=== PATIENT | male | born 1940 | race Caucasian/White ===

== ENCOUNTER 2019-07-04 09:13 | Emergency (ER) | payer MEDICARE, OTHER, SELFPAY ==
[2019-07-04 09:14] VITALS: BP 198/87; PULSE 105; RESP 18; TEMP 36.6; O2SAT 95; BMI 34.7
--- NOTE | 2019-07-04 09:22 | ED_ITS ---
Entered by Kadie Jorgensen, acting as scribe for HPI - Chest Pain General: Chief Complaint: Chest Pain Stated Complaint: Chest pain Time Seen by Provider: 07/04/19 09:22 History of Present Illness: HPI narrative: 79 yo male presents with chest pain. Pt states that his pain radiates to his shoulder blades. Pt states that he started getting his chest pain this morning. Pt states that he wasn't doing anything when his pain started. Pt states that the chest pain is still present. Associated symptoms: Deny abdominal pain, dyspnea, fever(s), nausea, palpitations, syncope or vomiting Review of Systems Const: Denies: fever, chills, body aches, fatigue, malaise or night sweats Eyes: Denies: change in vision or blurry vision ENMT: Denies: throat pain, oral sores/lesions, dental pain, nasal discharge or nasal congestion Card: Reports: chest pain; Denies: palpitations, irregular heart rhythm, edema, syncope, shortness of breath on exertion, shortness of breath when lying down or leg pain with exertion Resp: Denies: shortness of breath, productive cough, non-productive cough or wheezing GI: Denies: abdominal pain, nausea, vomiting, vomiting blood, coffee grounds in vomit, difficulty swallowing, heartburn/indigestion, diarrhea, constipation, cramping, blood in stool or black tarry stool : Denies: flank pain, difficulty urinating, painful urination, urinary frequency, urinary urgency, urinary incontinence or blood in urine Musc: Denies: neck pain, back pain, extremity pain, extremity swelling, joint pain or joint swelling Skin/Breast: Denies: rash, itching or redness Neuro: Denies: headache, numbness in extremities, weakness in extremities, changes in sensation, lack of coordination, difficulty walking, frequent falls, dizziness, vertigo or confusion Psych: Denies: anxiety, depression, loss of interest, visual hallucinations, auditory hallucinations, suicidal ideation or homicidal ideation Endo: Denies: excessive urination, excessive thirst, tired all the time or cold intolerance Varun/Lymph: Denies: easy bruising, easy bleeding, petechiae, enlarged lymph nodes or tender lymph nodes PFSH ED PFSH: Medical History (Updated 07/04/19 @ 12:43 by Bob Lowe DO) Acid reflux Anemia Colon cancer Hypercholesterolemia Hypertension Skin cancer Surgical History (Updated 07/04/19 @ 09:29 by Kadie Jorgensen) Hx of CABG Social History Smoking and tobacco status: former smoker Physical Exam Const: COMMON NORMALS: average body habitus, oriented x3 and alert GENERAL APPEARANCE: cooperative, comfortable, well kempt and well developed NUTRITIONAL APPEARANCE: obese ORIENTATION/CONSCIOUSNESS: Yes awake, Yes oriented to person and Yes oriented to place HENMT: COMMON NORMALS: normocephalic, head/scalp atraumatic, EAC's normal, TM's normal bilaterally, external nose normal, moist oral mucous membranes and oropharynx normal HEAD & SCALP: normocephalic and atraumatic NOSE: external nose normal EXTERNAL AUDITORY CANAL: EAC's normal TYMPANIC MEMBRANE: TM's normal bilaterally MOUTH: oral and palatal mucosa normal, lip normal and tongue normal THROAT: posterior oropharynx normal and tonsils normal Eye: COMMON NORMALS: PERRL, EOMs intact bilaterally, conjunctivae normal and no scleral icterus CONJUNCTIVA: Yes conjunctivae normal PUPIL: Yes PERRL Neck/C-Spine: COMMON NORMALS: full ROM, no lymphadenopathy, supple, no meningeal signs and thyroid normal THYROID: thyroid normal and asymmetrical Lymph: LYMPHATIC: no lymphadenopathy noted Resp: COMMON NORMALS: normal respiratory effort, no retractions, no use of accessory muscles and clear to auscultation bilaterally AUSCULTATION: clear to auscultation bilaterally Cardio: COMMON NORMALS: regular rate and regular rhythm RATE: regular rate RHYTHM: regular rhythm HEART SOUNDS: no murmurs GI: COMMON NORMALS: normal to inspection, nondistended, normoactive bowel sounds, soft to palpation and no hepatosplenomegaly PALPATION: Yes soft and Yes no hepatosplenomegaly : COMMON NORMALS: Yes no CVA tenderness BLADDER/KIDNEY EXAM: Yes no CVA tenderness Back/Pelvis: COMMON NORMALS: no CVA tenderness LUMBAR SPINE/LOWER BACK: Yes normal to inspection Extremity: COMMON NORMALS: no clubbing, cyanosis or edema, no calf tenderness and no pedal edema Neuro: COMMON NORMALS: oriented x3 SENSORIUM/ORIENTATION: Yes alert, Yes oriented to person and Yes oriented to place MENINGEAL SIGNS: Yes no meningeal signs Psych: APPEARANCE: Yes well kempt Skin: COMMON NORMALS: no rashes or lesions noted and skin turgor normal GENERAL SKIN EXAM: no rashes or lesions noted and turgor normal Course ED course: Troponin x2 is negative. Patient had a normal sestamibi stress test in February 2019. Is not having any further chest pain at this time he prefer to go home it does look like he has a small pneumonia on his chest x-ray go and start him on antibiotics if has any worsening or change symptoms return to emergency room immediately Vital Signs: Vital signs: Vital Signs Temperature 97.9 F 07/04/19 09:14 Pulse Rate 56 L 07/04/19 12:59 Respiratory Rate 18 07/04/19 12:59 Blood Pressure 162/68 07/04/19 12:59 Pulse Oximetry 98 07/04/19 12:59 MDM - Chest Pain Lab Data: Labs: Lab Results 07/04/19 07/04/19 07/04/19 Range/Units 09:44 09:44 09:44 WBC 6.1 (4.0-10.0) 10^3/ uL RBC 4.32 (4.1-5.3) 10^6/u L Hgb 13.1 (11.7-16.6) g/dL Hct 38.5 L (42.0-52.0) % MCV 89.1 (80-94) fL MCH 30.3 (28.0-34.0) pg MCHC 34.0 (30.0-36.0) g/dL RDW 14.1 (12.1-15.1) % Plt Count 188 (130-400) 10^3/c mm MPV 9.6 (7.4-10.4) fL Neut % (Auto) 52.4 % Lymph % (Auto) 33.1 % Mineral % (Auto) 11.1 % Eos % (Auto) 2.6 % Baso % (Auto) 0.3 % Neut # (Auto) 3.2 (1.8-7.7) 10^3/u L Lymph # (Auto) 2.0 (0.8-4.8) 10^3/u L Mineral # (Auto) 0.7 (0.2-0.9) 10^3/u L Eos # (Auto) 0.2 (0.0-0.8) 10^3/u L Baso # (Auto) 0.0 (0.0-0.1) 10^3/u L Nucleated RBC % (a uto) 0 % Nucleated RBCs # 0.0 /100WBC PT 12.90 (10.5-13.3) SECO NDS INR 0.94 (0.8-1.2) APTT 25.7 (23.9-36.7) SECO NDS Sodium 137 (136-145) mmol/L Potassium 4.1 (3.5-5.1) mmol/L Chloride 104 (98-107) mmol/L Carbon Dioxide 20 L (22-29) mmol/L Anion Gap 17.1 (5-19) BUN 20 (8-23) mg/dL Creatinine 1.2 (0.7-1.2) mg/dL Glucose 116 H (65-115) mg/dL Calcium 9.8 (8.5-10.5) mg/dL Total Bilirubin 0.5 (0.15-1.2) mg/dL AST 24 (0-40) U/L ALT 32 (0-41) U/L Alkaline Phosphata se 100 (40-130) IU/L Troponin T Baselin e (0-15) ng/mL Troponin T 120 Min bharath (0-15) ng/mL Delta Troponin T (0-10) ABS# Total Protein 7.2 (6.6-8.7) g/dL Albumin 3.9 (3.5-5.2) g/dL Globulin 3.3 (1.3-4.6) g/dL Lipase 39 (13-60) U/L 07/04/19 07/04/19 Range/Units 09:44 11:32 WBC (4.0-10.0) 10^3/ uL RBC (4.1-5.3) 10^6/u L Hgb (11.7-16.6) g/dL Hct (42.0-52.0) % MCV (80-94) fL MCH (28.0-34.0) pg MCHC (30.0-36.0) g/dL RDW (12.1-15.1) % Plt Count (130-400) 10^3/c mm MPV (7.4-10.4) fL Neut % (Auto) % Lymph % (Auto) % Mineral % (Auto) % Eos % (Auto) % Baso % (Auto) % Neut # (Auto) (1.8-7.7) 10^3/u L Lymph # (Auto) (0.8-4.8) 10^3/u L Mineral # (Auto) (0.2-0.9) 10^3/u L Eos # (Auto) (0.0-0.8) 10^3/u L Baso # (Auto) (0.0-0.1) 10^3/u L Nucleated RBC % (a uto) % Nucleated RBCs # /100WBC PT (10.5-13.3) SECO NDS INR (0.8-1.2) APTT (23.9-36.7) SECO NDS Sodium (136-145) mmol/L Potassium (3.5-5.1) mmol/L Chloride (98-107) mmol/L Carbon Dioxide (22-29) mmol/L Anion Gap (5-19) BUN (8-23) mg/dL Creatinine (0.7-1.2) mg/dL Glucose (65-115) mg/dL Calcium (8.5-10.5) mg/dL Total Bilirubin (0.15-1.2) mg/dL AST (0-40) U/L ALT (0-41) U/L Alkaline Phosphata se (40-130) IU/L Troponin T Baselin e 16 H (0-15) ng/mL Troponin T 120 Min bharath 15.50 H (0-15) ng/mL Delta Troponin T -0.20 L (0-10) ABS# Total Protein (6.6-8.7) g/dL Albumin (3.5-5.2) g/dL Globulin (1.3-4.6) g/dL Lipase (13-60) U/L Discharge Plan Discharge Patient Disposition: Home, Self-Care Clinical Impression: Pneumonia Condition: Stable Prescriptions: New Levaquin 750 mg tablet 750 mg PO DAILY 7 Days Qty: 14 RF: 0 No Action atorvastatin 40 mg Tablet 40 mg PO DAILY RF: 0 tamsulosin 0.4 mg Capsule 0.4 mg PO DAILY RF: 0 trazodone 100 mg Tablet 100 mg PO BID RF: 0 Protonix 40 mg Tablet,Delayed Release (Dr/Ec) 40 mg PO DAILY RF: 0 metoprolol tartrate 50 mg Tablet 50 mg PO BID RF: 0 losartan 100 mg Tablet 100 mg PO DAILY RF: 0 finasteride 5 mg Tablet 5 mg PO DAILY RF: 0 Discharge Orders: Discharge Order (Routine); Ordered 07/04/19 Ordered By: Bob Lowe Referrals: [facility] [Other] Discharge Diet: Usual diet Discharge Activity: Limit activity as instructed Discharge Date/Time: 07/04/19 13:15 Coding Level of Care Code ED Log Cut Off Sawyer for Chg Fwd Exam Comprehensive The documentation recorded by the Jameel jackson Kialy, accurately reflects the service I personally performed and the decisions made by Chrissy mora Curtis L, DO Jul 04, 2019 09:13
--- NOTE | 2019-07-04 09:49 | ECG_ITS ---
Measurements Intervals [place] Rate: 93 P: 38 UT: 208 QRS: 34 QRSD: 145 T: 15 QT: 376 QTc: 468 SINUS RHYTHM RIGHT BUNDLE BRANCH BLOCK [120+ ms QRS DURATION, UPRIGHT V1, 40+ ms S IN I/ I/aVL/V4/V5/V6] Compared to ECG 11/08/2017 22:49:59 Ventricular premature complex(es) no longer present Indeterminate axis no longer present Electronically Signed On 07-04-2019 11:20:25 STRATEGIC DEBRIEFING OFFICER by Richard Cooper M.D. [id number]
--- NOTE | 2019-07-04 09:50 | XR_ITS ---
WS: [id number] XR chest 1V portable [id number] REASON FOR EXAM: dyspnea/cough FINDINGS: Interstitial infiltrate in the basilar portion of the left lower lung with air bronchograms . The heart is not enlarged, sternotomy changes. The remaining lung nichols are well aerated. Both hilum and apices are normal. The left shoulder shows a medullary pin in position. XR/XR chest 1V portable [id number] IMPRESSION: Interstitial pneumonia left lung base. Previous sternotomy and coronary bypass findings.
[2019-07-04 09:57] LABS: Basophils % 0.3 %; Eosinophils # 0.2 10^3/uL (0.0-0.8); Eosinophils % 2.6 %; Hematocrit 38.5 % (42.0-52.0); Hemoglobin 13.1 g/dL (11.7-16.6); Lymphocytes % 33.1 %; Mean Corpuscular Hemoglobin 30.3 pg (28.0-34.0); Mean Corpuscular Volume 89.1 fL (80-94); Mean Platelet Volume 9.6 fL (7.4-10.4); Monocytes # 0.7 10^3/uL (0.2-0.9); Monocytes % 11.1 %; Neutrophils # 3.2 10^3/uL (1.8-7.7); Neutrophils % 52.4 %; Nucleated Red Blood Cells % 0 %; Platelet Count 188 10^3/cmm (130-400); Red Blood Count 4.32 10^6/uL (4.1-5.3); Red Cell Distribution Width 14.1 % (12.1-15.1); White Blood Count 6.1 10^3/uL (4.0-10.0)
[2019-07-04 10:04] LABS: INR 0.94 (0.8-1.2); Partial Thromboplastin Time 25.7 SECONDS (23.9-36.7)
[2019-07-04 10:10] LABS: Alanine Aminotransferase 32 U/L (0-41); Albumin Level 3.9 g/dL (3.5-5.2); Alkaline Phosphatase 100 IU/L (40-130); Anion Gap 17.1 (5-19); Aspartate Amino Transferase 24 U/L (0-40); Blood Urea Nitrogen 20 mg/dL (8-23); Calcium 9.8 mg/dL (8.5-10.5); Carbon Dioxide 20 mmol/L (22-29); Chloride 104 mmol/L (98-107); Globulin 3.3 g/dL (1.3-4.6); Glucose 116 mg/dL (65-115); Lipase 39 U/L (13-60); Potassium 4.1 mmol/L (3.5-5.1); Sodium 137 mmol/L (136-145); Total Bilirubin 0.5 mg/dL (0.15-1.2); Total Protein 7.2 g/dL (6.6-8.7)
[2019-07-04 10:12] LABS: Troponin(5th) Baseline 16 ng/mL (0-15)
[2019-07-04 11:39] VITALS: BP 190/91; PULSE 73; RESP 18; O2SAT 99
--- NOTE | 2019-07-04 11:49 | ECG_ITS ---
Measurements Intervals [place] Rate: 65 P: 97 W[place]: 216 QRS: 45 QRSD: 162 T: 29 QT: 440 QTc: 460 SINUS RHYTHM WITH FIRST DEGREE AV BLOCK RIGHT BUNDLE BRANCH BLOCK [120+ ms QRS DURATION, UPRIGHT V1, 40+ ms S IN I/a I/aVL/V4/V5/V6] Compared to ECG 07/04/2019 09:22:05 First degree AV block now present Electronically Signed On 07-04-2019 16:04:50 PROCESSING SUPERVISOR by Richard Cooper M.D. [email or web address]
[2019-07-04 12:59] VITALS: BP 162/68; PULSE 56; RESP 18; O2SAT 98
--- NOTE | 2019-07-04 15:49 | ECG_ITS ---
Measurements Intervals [place] Rate: 65 P: 97 [place]: 216 QRS: 45 QRSD: 162 T: 29 QT: 440 QTc: 460 SINUS RHYTHM WITH FIRST DEGREE AV BLOCK RIGHT BUNDLE BRANCH BLOCK [120+ ms QRS DURATION, UPRIGHT V1, 40+ ms S IN I/aVL/V4/V5/V6] Compared to ECG 07/04/2019 09:22:05 First degree AV block now present [email or web address]
== END 2019-07-04 13:15 | disposition home or self-care (01) ==
PROVIDERS: Emergency Provider Family Medicine
DX: J18.9 Pneumonia, unspecified organism (principal); I10 Essential (primary) hypertension; E78.00 Pure hypercholesterolemia, unspecified; Z87.891 Personal history of nicotine dependence
CPT/HCPCS: 36415; 71045; 80053; 83690; 84484; 85025; 85610; 85730; 93005; 99283; 99284

== ENCOUNTER 2019-09-25 12:08 | Observation (INO) | payer MEDICARE, OTHER, SELFPAY ==
[2019-09-25 12:12] VITALS: BP 206/86; PULSE 68; RESP 16; TEMP 36.4; O2SAT 97; BMI 34.0
--- NOTE | 2019-09-25 12:17 | CT_ITS ---
WS: [id number] CT abdomen pelvis w con* [id number] REASON FOR EXAM: abd pain IV CONTRAST ADMINISTERED: Visipaque 300, 95 mL. TOTAL EXAM DLP: 1409.[address] scans at [facility] use at least one of these dose optimization techniques: automat ed exposure control; mA and/or kV adjustment per patient size (includes targeted exams where dose is matched to clinical indication); or iterative reconstruction. FINDINGS: The lower lung nichols were normal. Normal aeration is seen. The liver shows normal attenuation changes no filling defects in the liver were seen. The gallbladder is distended with multiple partially calcified stones most likely calcium oxalate stones. The common bile duct appear to be normal. The pancreas head, body, tail were normal. The spleen showed no abnormalities. The stomach showed no filling defect or ulcers. Enlargement of the right injured 2.203 cm. The left adrenal gland also shows enlargement measures 3.3 2 cm we recommend a three-phase study be made with either MR are CT to no function of the adrenal enl argement. The kidneys show a cyst on the periphery of the right cyst measures 3.25 cm. The left side appear to be normal other than a small cyst of the superior pole measure 1.8 cm. The aorta shows heavy arteriosclerotic changes extending down to the iliac arteries. The ureters appear to be normal The small bowel patterns were normal. The cecum showed no gross abnormalities. The appendix is not well seen. Along the descending: There appears to be diverticulosis and questionable diverticulitis. This extend s down to the sigmoid colon. The bladder was normal. The prostate upper limits of normal no abnormalities of signal are seen The anorectal area was normal. The bony pelvis as well as the lumbar spine were normal. CT/CT abdomen pelvis w con* [id number] IMPRESSION: Multiple cholelithiasis Diverticulosis with low-grade diverticulitis of the lower descending sigmoid co peewee There is bilateral enlargement of the adrenal glands, consider 3 phase study be made. There is cyst seen in both kidneys all of which appear to be benign. Report was made to the ER service.
--- NOTE | 2019-09-25 12:29 | W.ED.ABDPA2 ---
HPI - Abdominal Pain General: Chief Complaint: Abdominal Pain Stated Complaint: lower abd pain Time Seen by Provider: 09/25/19 12:10 History of Present Illness: Associated Symptoms: Denies change in stool character, constipation, diarrhea, hematochezia and melena Review of Systems General: Reports: 10 or more systems reviewed and unremarkable except in HPI and below GI: Reports: abdominal pain; Denies: diarrhea, constipation, change in stool character, blood in stool or black tarry stool PFSH ED PFSH: Medical History Acid reflux Anemia Atherosclerotic cardiovascular disease Bradycardia Colon cancer Essential hypertension Hypercholesterolemia Hyperlipidemia Hypertension PAD (peripheral artery disease) Skin cancer Somnolence, daytime Surgical History Hx of CABG Family History Father CAD (coronary artery disease) Mother CAD (coronary artery disease) Daughter Cancer Denies family history of Diabetes Clotting disorder Dementia Hyperlipidemia Psychiatric illness Chronic kidney disease (CKD) Suicide Anesthesia complication Bleeding disorder Family history of premature coronary artery disease Lung disease Hypertension Stroke Social History Smoking and tobacco status: former smoker Physical Exam Const: COMMON NORMALS: no apparent distress, average body habitus, oriented x3, no limitations, healthy appearing, alert and well nourished HENMT: COMMON NORMALS: normocephalic, head/scalp atraumatic, hearing grossly normal bilaterally, external ears normal, EAC's normal, TM's normal bilaterally, external nose normal, nasal mucous membranes and turbinates normal, moist oral mucous membranes, oropharynx normal, dentition normal and gingiva normal HEAD & SCALP: normocephalic and atraumatic NOSE: external nose normal and nasal mucous membranes and turbinates normal EXTERNAL EAR: Yes external ears normal EXTERNAL AUDITORY CANAL: EAC's normal TYMPANIC MEMBRANE: TM's normal bilaterally Eye: COMMON NORMALS: PERRL, EOMs intact bilaterally, conjunctivae normal, no scleral icterus, no papilledema, normal visual nichols by confrontation and fundi normal bilaterally CONJUNCTIVA: Yes conjunctivae normal PUPIL: Yes PERRL DIRECT OPHTHALMOSCOPY: Yes no papilledema and Yes fundi normal bilaterally Neck/C-Spine: COMMON NORMALS: full ROM, no lymphadenopathy, supple, no meningeal signs, no JVD, thyroid normal and no carotid bruits THYROID: thyroid normal Chest: COMMONS NORMALS: inspection of chest normal and palpation of chest normal Resp: COMMON NORMALS: normal respiratory effort, no retractions, no use of accessory muscles, clear to auscultation bilaterally and percussion normal AUSCULTATION: clear to auscultation bilaterally PERCUSSION: percussion normal Cardio: COMMON NORMALS: no JVD, regular rate, regular rhythm, S1 normal heart sound, S2 normal heart sound, no gallops, no clicks, no murmurs, no rub and peripheral pulses 2+ throughout RATE: regular rate RHYTHM: regular rhythm HEART SOUNDS: S1 normal and S2 normal PERIPHERAL PULSES: pulses 2+ throughout GI: COMMON NORMALS: normal to inspection, nondistended, normoactive bowel sounds, soft to palpation, no hepatosplenomegaly, no masses and no bruits INSPECTION: Yes normal to inspection AUSCULTATION: Yes normoactive bowel sounds PALPATION: Yes soft, Yes tender Details: LLQ and RLQ and Yes no hepatosplenomegaly PERCUSSION: normal to percussion : COMMON NORMALS: Yes no CVA tenderness BLADDER/KIDNEY EXAM: Yes no CVA tenderness Back/Pelvis: COMMON NORMALS: no CVA tenderness, thoracic and lumbar spine normal to inspection, no thoracic nor lumbar tenderness, thoraco-lumbar ROM normal and straight leg raise negative bilaterally Extremity: COMMON NORMALS: normal to inspection, full ROM, normal capillary refill, no joint enlargement, no clubbing, cyanosis or edema, no calf tenderness and no pedal edema Neuro: COMMON NORMALS: oriented x3 SENSORIUM/ORIENTATION: Yes alert MENINGEAL SIGNS: Yes no meningeal signs Skin: COMMON NORMALS: no rashes or lesions noted, no wounds, skin turgor normal, no jaundice, no petechiae and no mottling GENERAL SKIN EXAM: no rashes or lesions noted and turgor normal Course Vital Signs: Vital signs: Vital Signs Temperature 97.5 F L 09/25/19 12:12 Pulse Rate 68 09/25/19 12:12 Respiratory Rate 16 09/25/19 12:12 Blood Pressure 206/86 09/25/19 12:12 Pulse Oximetry 97 09/25/19 12:12 MDM - Abdominal Pain Lab Data: Labs: Lab Results 09/25/19 09/25/19 09/25/19 Range/Units 12:28 12:28 12:28 WBC 9.7 (4.0-10.0) 10^3/ uL RBC 4.07 L (4.1-5.3) 10^6/u L Hgb 12.4 (11.7-16.6) g/dL Hct 36.5 L (42.0-52.0) % MCV 89.7 (80-94) fL MCH 30.5 (28.0-34.0) pg MCHC 34.0 (30.0-36.0) g/dL RDW 13.8 (12.1-15.1) % Plt Count 188 (130-400) 10^3/c mm MPV 9.5 (7.4-10.4) fL Neut % (Auto) 65.8 % Lymph % (Auto) 22.9 % [place] % (Auto) 9.3 % Eos % (Auto) 1.5 % Baso % (Auto) 0.2 % Neut # (Auto) 6.4 (1.8-7.7) 10^3/u L Lymph # (Auto) 2.2 (0.8-4.8) 10^3/u L [place] # (Auto) 0.9 (0.2-0.9) 10^3/u L Eos # (Auto) 0.1 (0.0-0.8) 10^3/u L Baso # (Auto) 0.0 (0.0-0.1) 10^3/u L Nucleated RBC % (a uto) 0 % Nucleated RBCs # 0.0 /100WBC Sodium 137 (136-145) mmol/L Potassium 4.0 (3.5-5.1) mmol/L Chloride 105 (98-107) mmol/L Carbon Dioxide 22 (22-29) mmol/L Anion Gap 14.0 (5-19) BUN 17 (8-23) mg/dL Creatinine 1.3 H (0.7-1.2) mg/dL Glucose 115 (65-115) mg/dL Calculated Osmolal ity 281 L (285-295) mOsm/k g Lactate 1.1 (0.5-2.2) mmol/L Calcium 9.6 (8.5-10.5) mg/dL Total Bilirubin 0.6 (0.15-1.2) mg/dL AST 14 (0-40) U/L ALT 17 (0-41) U/L Alkaline Phosphata se 105 (40-130) IU/L Creatine Kinase 46 (39-308) U/L Total Protein 7.2 (6.6-8.7) g/dL Albumin 3.8 (3.5-5.2) g/dL Globulin 3.4 (1.3-4.6) g/dL Lipase 38 (13-60) U/L Urine Color (Yellow) Urine Appearance (CLEAR) Urine pH (5-7) Ur Specific Gravit y (1.005-1.030) Urine Protein (Negative) Urine Glucose (UA) (Normal) Urine Ketones (Negative) Urine Blood (Negative) Urine Nitrate (Negative) Urine Bilirubin (NEGATIVE) Urine Urobilinogen (Negative) mg/dL Ur Leukocyte Vidhi ase (Negative) 09/25/19 Range/Units 13:58 WBC (4.0-10.0) 10^3/ uL RBC (4.1-5.3) 10^6/u L Hgb (11.7-16.6) g/dL Hct (42.0-52.0) % MCV (80-94) fL MCH (28.0-34.0) pg MCHC (30.0-36.0) g/dL RDW (12.1-15.1) % Plt Count (130-400) 10^3/c mm MPV (7.4-10.4) fL Neut % (Auto) % Lymph % (Auto) % [place] % (Auto) % Eos % (Auto) % Baso % (Auto) % Neut # (Auto) (1.8-7.7) 10^3/u L Lymph # (Auto) (0.8-4.8) 10^3/u L [place] # (Auto) (0.2-0.9) 10^3/u L Eos # (Auto) (0.0-0.8) 10^3/u L Baso # (Auto) (0.0-0.1) 10^3/u L Nucleated RBC % (a uto) % Nucleated RBCs # /100WBC Sodium (136-145) mmol/L Potassium (3.5-5.1) mmol/L Chloride (98-107) mmol/L Carbon Dioxide (22-29) mmol/L Anion Gap (5-19) BUN (8-23) mg/dL Creatinine (0.7-1.2) mg/dL Glucose (65-115) mg/dL Calculated Osmolal ity (285-295) mOsm/k g Lactate (0.5-2.2) mmol/L Calcium (8.5-10.5) mg/dL Total Bilirubin (0.15-1.2) mg/dL AST (0-40) U/L ALT (0-41) U/L Alkaline Phosphata se (40-130) IU/L Creatine Kinase (39-308) U/L Total Protein (6.6-8.7) g/dL Albumin (3.5-5.2) g/dL Globulin (1.3-4.6) g/dL Lipase (13-60) U/L Urine Color Yellow (Yellow) Urine Appearance Clear (CLEAR) Urine pH 5 (5-7) Ur Specific Gravit y 1.010 (1.005-1.030) Urine Protein Neg (Negative) Urine Glucose (UA) Norm (Normal) Urine Ketones Negative (Negative) Urine Blood Neg (Negative) Urine Nitrate Negative (Negative) Urine Bilirubin Neg (NEGATIVE) Urine Urobilinogen Norm (Negative) mg/dL Ur Leukocyte Vidhi ase Negative (Negative) Discharge Plan Discharge Patient Disposition: Admitted As Inpatient Clinical Impression: Diverticulitis Condition: Fair Referrals: Michelle Oh [Primary Care Provider] - Coding Level of Care Code ED Tentering Machine Feeder for g Fwd Exam Comprehensive
[2019-09-25 12:35] LABS: Basophils % 0.2 %; Eosinophils # 0.1 10^3/uL (0.0-0.8); Eosinophils % 1.5 %; Hematocrit 36.5 % (42.0-52.0); Hemoglobin 12.4 g/dL (11.7-16.6); Lymphocytes # 2.2 10^3/uL (0.8-4.8); Lymphocytes % 22.9 %; Mean Corpuscular Hemoglobin 30.5 pg (28.0-34.0); Mean Corpuscular Volume 89.7 fL (80-94); Mean Platelet Volume 9.5 fL (7.4-10.4); Monocytes # 0.9 10^3/uL (0.2-0.9); Monocytes % 9.3 %; Neutrophils # 6.4 10^3/uL (1.8-7.7); Neutrophils % 65.8 %; Nucleated Red Blood Cells % 0 %; Platelet Count 188 10^3/cmm (130-400); Red Blood Count 4.07 10^6/uL (4.1-5.3); Red Cell Distribution Width 13.8 % (12.1-15.1); White Blood Count 9.7 10^3/uL (4.0-10.0)
[2019-09-25 12:50] LABS: Alanine Aminotransferase 17 U/L (0-41); Albumin Level 3.8 g/dL (3.5-5.2); Alkaline Phosphatase 105 IU/L (40-130); Aspartate Amino Transferase 14 U/L (0-40); Blood Urea Nitrogen 17 mg/dL (8-23); Calcium 9.6 mg/dL (8.5-10.5); Carbon Dioxide 22 mmol/L (22-29); Chloride 105 mmol/L (98-107); Creatine Phosphokinase 46 U/L (39-308); Globulin 3.4 g/dL (1.3-4.6); Glucose 115 mg/dL (65-115); Lipase 38 U/L (13-60); Osmolality Calculated 281 mOsm/kg (285-295); Sodium 137 mmol/L (136-145); Total Bilirubin 0.6 mg/dL (0.15-1.2); Total Protein 7.2 g/dL (6.6-8.7)
[2019-09-25 12:51] LABS: Lactate (Lactic Acid level) 1.1 mmol/L (0.5-2.2)
[2019-09-25] MEDS: iodixanol 320 mg/mL 100mL Btl IV (13:39)
[2019-09-25 14:01] LABS: Add Urine Microscopic? NO
[2019-09-25 14:16] LABS: Bilirubin Urine Neg (NEGATIVE); Blood Urine Neg (Negative); Glucose Urine UA Norm (Normal); Ketones Urine Negative (Negative); Leukocyte Esterase Urine Negative (Negative); Nitrate Urine Negative (Negative); Protein Urine Neg (Negative); Urine Appearance Clear (CLEAR); Urine Color Yellow (Yellow); Urobilinogen Urine Norm (Negative); pH Urine 5 (5-7)
[2019-09-25] MEDS: sodium chloride 0.9% 1,000 ML 100 ML IV (14:35)
[2019-09-25] MEDS: levofloxacin-dextrose 5 % 500 MG/100 ML PREMIX 100 MG IV (14:36)
[2019-09-25 14:55] VITALS: BP 197/77; PULSE 94; RESP 18; TEMP 36.9; O2SAT 98
[2019-09-25 16:00] VITALS: BP 180/90; PULSE 68; RESP 18; TEMP 36.4; O2SAT 98
[2019-09-25] MEDS: metroNIDAZOLE IV 500 MG/100 ML PREMIX 100 MG IV (17:03)
--- NOTE | 2019-09-25 17:03 | PM.HP ---
Providers/Chief Complaint Admitting Physician: Era Avery MD Primary Care Provider: Michelle Oh Chief Complaint: lower abd pain History of Present Illness Jesus Morris is a 79 year old male with a past medical history of hypertension, CAD status post CABG in the , HLD,bradycardia recently evaluted by cardiology who presents today with complaints of abdominal pain which started about a week ago. Pain was located mostly in the left lower quadrant, is intermittent, no exacerbating or relieving factors. He denies any nausea vomiting or diarrhea over the same.. He went over to his primary care's office and was advised to undergo a scheduled CT tomorrow, however the pain got worse today and he presented to the ER for evaluation. CT of the abdomen and pelvis showed diverticulitis of the sigmoid colon. Of note patient has a history of colon cancer he is status post partial colectomy with end-to-end anastomosis, last colonoscopy a few months ago was reportedly without any gross abnormalities per patient. Patient blood pressure in the ER was incidentally noted to be 206/80 mmHg and he was admitted for observation due to these elevated blood pressures in addition to the diverticulitis. Review of Systems General: Reports: 10 or more systems reviewed and unremarkable except in HPI and below Const: Denies: fever, chills or body aches Eyes: Denies: change in vision, blurry vision or photophobia ENMT: Reports: hoarseness; Denies: throat pain, enlarged tonsils, painful swallowing or nasal congestion Card: Denies: chest pain, palpitations, irregular heart rhythm, edema, swelling of feet/ankles, lightheadedness, pre-syncope, shortness of breath on exertion or shortness of breath when lying down Resp: Denies: shortness of breath, productive cough, non-productive cough, wheezing, stridor, pain on inspiration, change in phlegm color, coughing up blood or chest congestion GI: Reports: abdominal pain; Denies: nausea, vomiting, vomiting blood, coffee grounds in vomit, difficulty swallowing, heartburn/indigestion, diarrhea, constipation, cramping, change in stool character, blood in stool or black tarry stool : Denies: flank pain, painful urination, urinary frequency, urinary urgency, urinary hesitancy or blood in urine Musc: Denies: neck pain, back pain, extremity pain, joint swelling, joint warmth or deformity Neuro: Denies: headache, numbness in extremities, weakness in extremities, changes in sensation, difficulty walking, frequent falls, dizziness, vertigo, behavioral changes, slurred speech or seizure-like activity Psych: Denies: anxiety, depression, suicidal ideation or homicidal ideation Endo: Denies: excessive urination, excessive thirst, tired all the time, cold intolerance or hot flashes Varun/Lymph: Denies: easy bruising or easy bleeding Medications/Allergies Home Medications Medication Instructions Recorded Confirmed Last Taken Type atorvastatin 40 mg PO DAILY 07/04/19 09/25/19 09/25/19 History finasteride 5 mg PO DAILY 07/04/19 09/25/19 09/25/19 History losartan 100 mg PO DAILY 07/04/19 09/25/19 09/25/19 History pantoprazole [Protonix] 40 mg PO DAILY 07/04/19 09/25/19 09/25/19 History tamsulosin 0.4 mg PO DAILY 07/04/19 09/25/19 09/25/19 History trazodone 100 mg PO BID 07/04/19 09/25/19 09/25/19 History metoprolol tartrate 50 mg tablet 50 mg PO BID 08/31/19 09/25/19 09/25/19 History ascorbic acid (vitamin C) [Vitamin 1,000 mg PO Q12H 09/25/19 09/25/19 Unknown History C] gabapentin 300 mg PO BID 09/25/19 09/25/19 09/25/19 History vitamin A 8,000 unit PO DAILY 09/25/19 09/25/19 Unknown History Allergies Allergy/AdvReac Type Severity Reaction Status Date / Time No Known Allergies Allergy Verified 07/04/19 09:20 PFSH Acute PFSH: Medical History Acid reflux Anemia Atherosclerotic cardiovascular disease Bradycardia Colon cancer Essential hypertension Hypercholesterolemia Hyperlipidemia Hypertension PAD (peripheral artery disease) Skin cancer Somnolence, daytime Surgical History Hx of CABG Family History Father CAD (coronary artery disease) Mother CAD (coronary artery disease) Daughter Cancer Denies family history of Diabetes Clotting disorder Dementia Hyperlipidemia Psychiatric illness Chronic kidney disease (CKD) Suicide Anesthesia complication Bleeding disorder Family history of premature coronary artery disease Lung disease Hypertension Stroke Social History Smoking and tobacco status: former smoker Vitals/I&O/Wt Last Vital Signs Temp 97.5 F L 09/25/19 16:00 Pulse 68 09/25/19 16:00 Resp 18 09/25/19 16:00 BP 180/90 09/25/19 16:00 Pulse Ox 98 09/25/19 16:00 09/25/19 09/25/19 09/25/19 06:59 14:59 22:59 Intake Total 100 / 100 Output Total 200 / 200 Balance -100 / -100 Weight last 48 hrs Weight 104.326 kg Physical Exam Narrative: EXAM NARRATIVE: GEN: Awake, alert and oriented, no acute distress CVS: S1S2 N RS: CTA B/L Abd: Soft, nt/nd , bs+ , no focal guarding or rigidity on exam MANAGER ACTIVITIES: no focal neuro deficits ext: no cyanosis, edema, clubbing or LAD Data : 09/25/19 12:28 09/25/19 12:28 A&P Assessment and plan (1) Diverticulitis: Status: Acute (2) Atherosclerotic cardiovascular disease: Status: Acute (3) Hyperlipidemia: Status: Acute Qualifiers: Hyperlipidemia type: mixed hyperlipidemia Qualified Code(s): E78.2 - Mixed hyperlipidemia (4) Essential hypertension: Status: Acute Additional A&P Information Admit to [facility] 1. Acute diverticulitis Patient is currently not reporting to be in any pain. Bowel movements without any diarrhea tenesmus or bleeding. He is able to tolerate p.o. intake and had been taking a regular diet at home prior to this Discovery of diverticulitis, recommend a clear liquid diet for now advancing slowly as tolerated He has thus far received Levaquin and Flagyl IV in the ER. We will transition him to oral ciprofloxacin and oral metronidazole to see if he is able to tolerate oral medication medications. Abdominal exam is currently reassuring Discontinue normal saline as patient is able to tolerate p.o. intake. #2. Hypertensive urgency Patient's blood pressure currently noted to be 206/88 He is not reporting any current chest pain dyspnea or palpitations. We will continue his home medications including ARB and metoprolol Hydralazine added as needed for SBP greater than 180 #3 dyslipidemia : contineu statins Limited resuscitation: okay with chest compressions and cardiac interventions, no intubation or mechanical ventilation DVT ppx: lovenox Attestations Medical Necessity Statement*: Anticipate < 2midnight for management of hypertensive urgency, diverticulitis Coding Level of Care Code Acute Wide Area Network Systems Administrator for [facility] Diagnoses Diverticulitis K57.92 Atherosclerotic cardiovascular disease I25.10 Hyperlipidemia E78.2 Hyperlipidemia type: mixed hyperlipidemia Essential hypertension I10
[2019-09-25 19:52] VITALS: BP 185/72; PULSE 70; RESP 20; TEMP 36.7; O2SAT 98
[2019-09-25] MEDS: metoprolol tartrate 50 mg Tablet PO (20:57)
[2019-09-25] MEDS: acetaminophen 325 mg Tablet 650 MG PO (20:57)
[2019-09-25] MEDS: gabapentin 300 mg Capsule PO (20:58)
[2019-09-25] MEDS: metroNIDAZOLE 500 MG Tablet PO (20:58)
[2019-09-25] MEDS: enoxaparin 30 mg/0.3 mL Syringe SUBCUT (20:58)
[2019-09-25 22:14] VITALS: BP 104/61
[2019-09-25 23:53] VITALS: BP 93/50; PULSE 58; RESP 20; TEMP 36.7; O2SAT 96
[2019-09-26] VITALS (8 sets, daily range): BP systolic 145–180; BP diastolic 61–72; PULSE 53–59; RESP 16–22; TEMP 36.4–36.6; O2SAT 94–96
[2019-09-26] MEDS: lactated ringers 1,000 ML 999 ML IV (00:34)
[2019-09-26 06:29] LABS: Basophils % 0.4 %; Eosinophils # 0.3 10^3/uL (0.0-0.8); Hematocrit 35.3 % (42.0-52.0); Hemoglobin 11.7 g/dL (11.7-16.6); Lymphocytes # 1.8 10^3/uL (0.8-4.8); Lymphocytes % 21.9 %; Mean Corpuscular HGB Conc 33.1 g/dL (30.0-36.0); Mean Corpuscular Hemoglobin 30.3 pg (28.0-34.0); Mean Corpuscular Volume 91.5 fL (80-94); Monocytes % 12.2 %; Neutrophils # 4.9 10^3/uL (1.8-7.7); Neutrophils % 61.1 %; Nucleated Red Blood Cells % 0 %; Platelet Count 177 10^3/cmm (130-400); Red Blood Count 3.86 10^6/uL (4.1-5.3); Red Cell Distribution Width 13.9 % (12.1-15.1); White Blood Count 8.1 10^3/uL (4.0-10.0)
[2019-09-26 06:49] LABS: Alanine Aminotransferase 13 U/L (0-41); Albumin Level 3.3 g/dL (3.5-5.2); Alkaline Phosphatase 94 IU/L (40-130); Anion Gap 15.3 (5-19); Aspartate Amino Transferase 11 U/L (0-40); Blood Urea Nitrogen 14 mg/dL (8-23); Calcium 9.3 mg/dL (8.5-10.5); Carbon Dioxide 23 mmol/L (22-29); Chloride 105 mmol/L (98-107); Globulin 3.1 g/dL (1.3-4.6); Glucose 109 mg/dL (65-115); Osmolality Calculated 285 mOsm/kg (285-295); Potassium 4.3 mmol/L (3.5-5.1); Sodium 139 mmol/L (136-145); Total Bilirubin 0.9 mg/dL (0.15-1.2); Total Protein 6.4 g/dL (6.6-8.7)
--- NOTE | 2019-09-26 10:09 | PC.CHAP ---
Pastoral Care Encounter/Spiritual Assessment Type of Contact [] Declined cloth worker visit [] Patient/Family/Request visit [] Outpatient visit [] Follow-up visit [] Physician referral [] Code/Alert [x] Routine visit [] Staff referral [] Actively dying [] Patient sleeping [] Family support [] [] Out of room [] Palliative care [] [] Receiving care in room [] Pre-surgical visit [] Trauma [] Long length of stay [] ICU visit [] Other: Relational/Emotional Strength [] Patient feels connected with others/family/visitors/staff [] Distress [] Loneliness/isolation [] Abandonment Spirituality of Patient [] Person of July [] Attends Nondenominational of their July [x] Believes in Prayer [] Reads Bible or Nondenominational materials [] There are Spiritual issues to be addressed Mycology Teacher 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 [x] Prayer [] Active listening [] Non-anxious presence [] Spiritual/emotional support [] Crisis/trauma care [] Spiritual counseling [] Bereavement support [] Provided bereavement packet [] Provided Bible/devotional materials [] Provided toy/stuffed animal, coloring book to patient or family member [] Provided Communion [] Anointing/[place] [] Salvation [x] Completed spiritual assessment [] Other: Impact on Illness or Injury [] Angry [] Fearful [] Anxious [] Often cries [] Exhaustion [] Unable to work [] Unable to attend jewish [] Unable to walk/stand [] Unable to read [] Unable to drive [] Unable to eat/drink [] Unable to sleep [] Unable to be with family [] Patient intubated [] Other: Summary Patient (Shabbir) known to Jeronimo. feeling stronger. Time spent with patient 15 min
[2019-09-26] MEDS: ciprofloxacin 500 mg Tablet PO (10:15)
[2019-09-26] MEDS: atorvastatin 40 mg Tablet PO (10:15)
[2019-09-26] MEDS: pantoprazole DR 40 mg Tablet PO (10:16)
[2019-09-26] MEDS: metroNIDAZOLE 500 MG Tablet PO (10:16)
[2019-09-26] MEDS: finasteride 5 mg Tablet PO (10:16)
[2019-09-26] MEDS: losartan 50 mg Tablet 100 MG PO (10:16)
[2019-09-26] MEDS: tamsulosin 0.4 mg Capsule PO (10:16)
--- NOTE | 2019-09-26 12:20 | P.DS_ITS ---
Discharge Providers Date of Admission: 09/25/19 14:13 Date of Discharge: September 26, 2019 Attending Provider at Admission: Era Avery MD Attending Provider at Discharge: Effie Carreno MD Primary Care Provider: Michelle Oh Diagnoses at Discharge Discharge Diagnosis (1) Diverticulitis: Status: Acute (2) Atherosclerotic cardiovascular disease: Status: Acute (3) Hyperlipidemia: Status: Acute Qualifiers: Hyperlipidemia type: mixed hyperlipidemia Qualified Code(s): E78.2 - Mixed hyperlipidemia (4) Essential hypertension: Status: Acute Reason for Visit Reason for Visit: Reason For Visit: lower abd pain Hospital Course Hospital Course: Mr. Morris was admitted primarily because of hypertension in the setting of the diverticulitis that was noted on CT imaging. He was started on Cipro and Flagyl. He has tolerated oral intake and had improvement in his abdominal discomfort as well. For blood pressure held medications were resumed. I talked with him and he has a history of what sounds like white coat hypertension. He has a pocket card of blood pressures from home that are generally speaking in the 100s to 130s systolic over 70s to 90s diastolic, with only occasional elevations. The highest I saw was 180s over 90s. He was feeling much improved and ready for discharge home the following day. He will continue on oral antibiotics. I asked him to keep a log of his blood pressures. Wrote for an automated blood pressure cuff with large lettering or numbering so we could check his blood pressure himself. He very well may need some adjustments in antihypertensive management but I would like to get a more recent record of outpatient blood pressures before making those adjustments. Physical Exam Const: OTHER: Alert, oriented x3, cooperative Resp: OTHER: Clear to auscultation bilaterally rales rhonchi or wheezes noted, no accessory muscle use noted Cardio: OTHER: Regular rate and rhythm, no murmurs gallops or rubs. GI: OTHER: Abdomen soft, nontender, normoactive bowel sounds, nondistended Discharge Data Data Completed and Pending: Completed Studies During Hospitalization Category Date Time Status CT abdomen pelvis w con* [id number] Urge nt Cat Scan 09/25/19 12:17 Completed Pending at discharge Category Date Time Status Complete Blood Co unt w/Auto AM LABS Lab 09/27/19 04:00 Ordered Complete Blood Co unt w/Auto AM LABS Lab 09/28/19 04:00 Ordered Labs from last 24 hours 09/26/19 09/26/19 09/25/19 05:35 05:35 13:58 WBC 8.1 RBC 3.86 L Hgb 11.7 Hct 35.3 L MCV 91.5 MCH 30.3 MCHC 33.1 RDW 13.9 Plt Count 177 MPV 10.0 Neut % (Auto) 61.1 Lymph % (Auto) 21.9 [place] % (Auto) 12.2 Eos % (Auto) 4.0 Baso % (Auto) 0.4 Neut # (Auto) 4.9 Lymph # (Auto) 1.8 [place] # (Auto) 1.0 H Eos # (Auto) 0.3 Baso # (Auto) 0.0 Nucleated RBC % (a uto) 0 Nucleated RBCs # 0.0 Sodium 139 Potassium 4.3 Chloride 105 Carbon Dioxide 23 Anion Gap 15.3 BUN 14 Creatinine 1.3 H Glucose 109 Calculated Osmolal ity 285 Lactate Calcium 9.3 Total Bilirubin 0.9 AST 11 ALT 13 Alkaline Phosphata se 94 Creatine Kinase Total Protein 6.4 L Albumin 3.3 L Globulin 3.1 Lipase Urine Color Yellow Urine Appearance Clear Urine pH 5 Ur Specific Gravit y 1.010 Urine Protein Neg Urine Glucose (UA) Norm Urine Ketones Negative Urine Blood Neg Urine Nitrate Negative Urine Bilirubin Neg Urine Urobilinogen Norm Ur Leukocyte Vidhi ase Negative 09/25/19 09/25/19 09/25/19 12:28 12:28 12:28 WBC 9.7 RBC 4.07 L Hgb 12.4 Hct 36.5 L MCV 89.7 MCH 30.5 MCHC 34.0 RDW 13.8 Plt Count 188 MPV 9.5 Neut % (Auto) 65.8 Lymph % (Auto) 22.9 [place] % (Auto) 9.3 Eos % (Auto) 1.5 Baso % (Auto) 0.2 Neut # (Auto) 6.4 Lymph # (Auto) 2.2 [place] # (Auto) 0.9 Eos # (Auto) 0.1 Baso # (Auto) 0.0 Nucleated RBC % (a uto) 0 Nucleated RBCs # 0.0 Sodium 137 Potassium 4.0 Chloride 105 Carbon Dioxide 22 Anion Gap 14.0 BUN 17 Creatinine 1.3 H Glucose 115 Calculated Osmolal ity 281 L Lactate 1.1 Calcium 9.6 Total Bilirubin 0.6 AST 14 ALT 17 Alkaline Phosphata se 105 Creatine Kinase 46 Total Protein 7.2 Albumin 3.8 Globulin 3.4 Lipase 38 Urine Color Urine Appearance Urine pH Ur Specific Gravit y Urine Protein Urine Glucose (UA) Urine Ketones Urine Blood Urine Nitrate Urine Bilirubin Urine Urobilinogen Ur Leukocyte Vidhi ase Vitals: Last Vital Signs Temp 97.8 F 09/26/19 11:10 Pulse 58 L 09/26/19 11:10 Resp 22 H 09/26/19 11:10 BP 170/72 09/26/19 11:10 Pulse Ox 96 09/26/19 11:10 Discharge Plan Discharge Patient Disposition: Home, Self-Care Condition: Stable Prescriptions: New metronidazole 500 mg Tablet 500 mg PO TID Qty: 21 RF: 0 ciprofloxacin HCl 500 mg Tablet 500 mg PO BID Qty: 14 RF: 0 Continued vitamin A 8,000 unit Capsule 8,000 unit PO DAILY RF: 0 Vitamin C 1,000 mg Tablet Extended Release 1,000 mg PO Q12H RF: 0 gabapentin 300 mg Tablet Extended Release 24 Hr 300 mg PO BID RF: 0 atorvastatin 40 mg Tablet 40 mg PO DAILY RF: 0 tamsulosin 0.4 mg Capsule 0.4 mg PO DAILY RF: 0 trazodone 100 mg Tablet 100 mg PO BID RF: 0 pantoprazole [Protonix] 40 mg Tablet,Delayed Release (Dr/Ec) 40 mg PO DAILY RF: 0 losartan 100 mg Tablet 100 mg PO DAILY RF: 0 finasteride 5 mg Tablet 5 mg PO DAILY RF: 0 metoprolol tartrate 50 mg tablet 50 mg PO BID RF: 0 Discharge Orders: Discharge Order (Routine); Ordered 09/26/19 Ordered By: Effie Carreno Other Ambulatory Orders: DME: Miscellaneous (Order) Location: None Selected Ordered By: Effie Carreno [place] [facility] [place] Michelle Oh [Primary Care Provider] - 10/04/19 9:15 am (needs to have BP checked for need to adjust medications) Discharge Diet: GI Soft Discharge Activity: Resume usual activity Patient Instructions: Ciprofloxacin (By mouth), Metronidazole (By mouth), Diverticulitis (DC) Discharge Date/Time: 09/26/19 13:52 Discharge Attestations Time Spent in Discharge Care*: greater than 30 min Quality Metrics Clinical Quality Measures During this hospital stay, did patient experience: None Coding Level of Care Code Acute Funding Analyst for [facility] Diagnoses Diverticulitis K57.92 Atherosclerotic cardiovascular disease I25.10 Hyperlipidemia E78.2 Hyperlipidemia type: mixed hyperlipidemia Essential hypertension I10
== END 2019-09-26 13:52 | disposition home or self-care (01) ==
LOC: ER 14:06 → MEDSURG 14:29
PROVIDERS: Admitting Provider Student in an Organized Health Care Education/Training Program; Emergency Provider Family Medicine; PCP Nurse Practitioner Family; Visit Provider Hospitalist
DX: K57.30 Diverticulosis of large intestine without perforation or abscess without bleeding (principal); I25.10 Atherosclerotic heart disease of native coronary artery without angina pectoris; E78.2 Mixed hyperlipidemia; I10 Essential (primary) hypertension; Z95.1 Presence of aortocoronary bypass graft; K21.9 Gastro-esophageal reflux disease without esophagitis; Z82.49 Family history of ischemic heart disease and other diseases of the circulatory system; Z87.891 Personal history of nicotine dependence
CPT/HCPCS: 12345; 36415; 74177; 80053; 81003; 82550; 83605; 83690; 85025; 96361; 96365; 96372; 99283; 99285; G0378; J1650; J1956; J7030; Q9967; S0030

== ENCOUNTER 2020-01-11 19:44 | Emergency (ER) | payer MEDICARE, OTHER, SELFPAY ==
[2020-01-11 20:06] VITALS: BP 187/75; PULSE 68; RESP 14; TEMP 36.6; O2SAT 96; BMI 33.2
--- NOTE | 2020-01-11 20:14 | ECG_ITS ---
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 Measurements Intervals [place] Rate: 55 P: -8 GA: 244 QRS: 15 QRSD: 159 T: -2 QT: 463 QTc: 444 Interpretive Statements SINUS BRADYCARDIA WITH FIRST DEGREE AV BLOCK RIGHT BUNDLE BRANCH BLOCK [120+ ms QRS DURATION, UPRIGHT V1, 40+ ms S IN I/aVL/V4/V5/V6] Compared to ECG 07/04/2019 11:39:27 Sinus rhythm no longer present Electronically Signed On 01-13-2020 20:42:51 CDT by Josseline Vargas M.D. [email or web address]
--- NOTE | 2020-01-11 20:23 | W.ED.DIZZY ---
HPI - Dizziness General: Chief Complaint: Dizziness Stated Complaint: post dizziness Time Seen by Provider: 01/11/20 20:12 Source: patient Mode of arrival: ambulatory Limitations: no limitations History of Present Illness: HPI Narrative: 79-year-old male states roughly 2 hours ago ascending down eating a piece of pie and started having dizziness. He states the room was spinning and this lasted for roughly 20 to 30 seconds. He states he has been asymptomatic since then. He denies any chest pain or headache. States his blood pressure was running high as well. He is hypertensive here. He denies any dizziness now and has been able to ambulate without any difficulty. Associated symptoms: Denies chest pain, chills, nausea or vomiting Review of Systems Const: Denies: fever(s), chills, body aches or change in appetite Eyes: Denies: blurry vision or eye discomfort ENMT: Denies: throat pain or dental pain Card: Denies: chest pain Resp: Denies: dyspnea GI: Denies: abdominal pain, nausea, vomiting or diarrhea : Denies: dysuria Musc: Denies: neck pain or back pain Skin/Breast: Denies: rash Neuro: Reports: dizziness Psych: Denies: depression Varun/Lymph: Denies: easy bruising All/Imm: Denies: urticaria PFSH ED PFSH: Medical History Acid reflux Anemia Atherosclerotic cardiovascular disease Bradycardia Colon cancer Essential hypertension Hypercholesterolemia Hyperlipidemia Hypertension PAD (peripheral artery disease) Skin cancer Somnolence, daytime Surgical History Hx of CABG Family History Father CAD (coronary artery disease) Mother CAD (coronary artery disease) Daughter Cancer Denies family history of Diabetes Clotting disorder Dementia Hyperlipidemia Psychiatric illness Chronic kidney disease (CKD) Suicide Anesthesia complication Bleeding disorder Family history of premature coronary artery disease Lung disease Hypertension Stroke Social History Smoking and tobacco status: former smoker Physical Exam Const: COMMON NORMALS: no acute distress, patient oriented x3 and healthy appearing HENMT: COMMON NORMALS: normocephalic and atraumatic HEAD & SCALP: normocephalic and atraumatic Eye: COMMON NORMALS: Equal, round and reactive pupils present and EOMs intact bilaterally PUPIL: Yes Equal, round and reactive pupils present Neck/C-Spine: COMMON NORMALS: full ROM and supple Chest: COMMONS NORMALS: normal inspection of the chest and normal palpation of entire chest wall Resp: COMMON NORMALS: normal respiratory effort, No retractions, No use of accessory muscles and clear to auscultation bilaterally AUSCULTATION: clear to auscultation bilaterally Cardio: COMMON NORMALS: regular rate, regular rhythm and No murmurs present (Cardio) RATE: regular rate RHYTHM: regular rhythm GI: COMMON NORMALS: Normal to inspection, nondistended, normoactive bowel sounds present, Soft to palpation, non-tender and no masses PALPATION: Yes Soft to palpation Extremity: COMMON NORMALS: normal to inspection and full ROM Neuro: COMMON NORMALS: patient oriented x3, moves all extremities and no focal motor deficits Psych: COMMON NORMALS: mental status grossly normal, Normal thought process present and cooperative THOUGHT PROCESS: Normal thought process present Skin: COMMON NORMALS: no rashes or lesions noted and no wounds GENERAL SKIN EXAM: no rashes or lesions noted Course Vital Signs: Vital signs: Vital Signs Temperature 97.9 F 01/11/20 20:06 Pulse Rate 57 L 01/11/20 21:42 Respiratory Rate 20 H 01/11/20 21:42 Blood Pressure 142/63 01/11/20 21:42 Pulse Oximetry 95 01/11/20 21:42 MDM - Dizziness MDM Narrative: Medical decision making narrative: Patient presents here with dizziness that only lasted seconds. He has been asymptomatic here and is well-appearing here. He does have high blood pressure informed he needs to take a log and follow-up with his PCP. Patient's EKG and lab work is normal. He has no signs of a stroke. He is stable for discharge and return if worsening. He understands and agrees to plan. Lab Data: Labs: Lab Results 01/11/20 01/11/20 Range/Units 20:30 20:30 WBC 6.8 (4.0-10.0) 10^3/ uL RBC 4.13 (4.1-5.3) 10^6/u L Hgb 12.4 (11.7-16.6) g/dL Hct 37.6 L (42.0-52.0) % MCV 91.0 (80-94) fL MCH 30.0 (28.0-34.0) pg MCHC 33.0 (30.0-36.0) g/dL RDW 13.9 (12.1-15.1) % Plt Count 166 (130-400) 10^3/c mm MPV 9.8 (7.4-10.4) fL Neut % (Auto) 61.1 % Lymph % (Auto) 26.8 % [place] % (Auto) 9.0 % Eos % (Auto) 2.5 % Baso % (Auto) 0.3 % Neut # (Auto) 4.14 (1.8-7.7) 10^3/u L Lymph # (Auto) 1.8 (0.8-4.8) 10^3/u L [place] # (Auto) 0.6 (0.2-0.9) 10^3/u L Eos # (Auto) 0.2 (0.0-0.8) 10^3/u L Baso # (Auto) 0.0 (0.0-0.1) 10^3/u L Nucleated RBC % (a uto) 0 % Nucleated RBCs # 0.0 /100WBC Sodium 137 (136-145) mmol/L Potassium 4.2 (3.5-5.1) mmol/L Chloride 106 (98-107) mmol/L Carbon Dioxide 22 (22-29) mmol/L Anion Gap 13.2 (5-19) BUN 22 (8-23) mg/dL Creatinine 1.5 H (0.7-1.2) mg/dL GFR Calculation Not Reportable Glucose 180 H (65-115) mg/dL Calculated Osmolal ity 285 (285-295) mOsm/k g Calcium 9.0 (8.5-10.5) mg/dL Total Bilirubin 0.3 (0.15-1.2) mg/dL AST 16 (0-40) U/L ALT 20 (0-41) U/L Alkaline Phosphata se 98 (40-130) IU/L Total Protein 6.7 (6.6-8.7) g/dL Albumin 4.0 (3.5-5.2) g/dL Globulin 2.7 (1.3-4.6) g/dL EKG Data^: EKG 1: Attestation: I personally reviewed and interpreted this EKG as follows: EKG interpretation date: 01/11/20 EKG interpretation time: 20:53 Interpretation: Sinus bradycardia heart rate [address] or T wave abnormalities QRS 159 QTc 452 Discharge Plan Discharge Patient Disposition: Home Clinical Impression: Dizziness Condition: Stable Prescriptions: No Action vitamin A 8,000 unit Capsule 8,000 unit PO DAILY RF: 0 Vitamin C 1,000 mg Tablet Extended Release 1,000 mg PO Q12H RF: 0 gabapentin 300 mg Tablet Extended Release 24 Hr 300 mg PO BID RF: 0 metronidazole 500 mg Tablet 500 mg PO TID Qty: 21 RF: 0 atorvastatin 40 mg Tablet 40 mg PO DAILY RF: 0 tamsulosin 0.4 mg Capsule 0.4 mg PO DAILY RF: 0 trazodone 100 mg Tablet 100 mg PO BID RF: 0 pantoprazole [Protonix] 40 mg Tablet,Delayed Release (Dr/Ec) 40 mg PO DAILY RF: 0 losartan 100 mg Tablet 100 mg PO DAILY RF: 0 finasteride 5 mg Tablet 5 mg PO DAILY RF: 0 metoprolol tartrate 50 mg tablet 50 mg PO BID RF: 0 Discharge Orders: Discharge Order (Routine); Ordered 01/11/20 Ordered By: Winston Youngblood Referrals: Michelle Oh FNP [Primary Care Provider] - Discharge Diet: Advance as tolerated Discharge Activity: Resume usual activity Patient Instructions: Dizziness (ED) Discharge Date/Time: 01/11/20 21:43 Coding Level of Care Code ED 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
[2020-01-11 20:29] VITALS: BP 172/115
[2020-01-11] MEDS: cloNIDine 0.1 mg Tablet PO (20:29)
[2020-01-11 20:34] VITALS: BP 166/72; PULSE 58; RESP 20; O2SAT 94
[2020-01-11 20:36] LABS: Basophils % 0.3 %; Eosinophils # 0.2 10^3/uL (0.0-0.8); Eosinophils % 2.5 %; Hematocrit 37.6 % (42.0-52.0); Hemoglobin 12.4 g/dL (11.7-16.6); Lymphocytes # 1.8 10^3/uL (0.8-4.8); Lymphocytes % 26.8 %; Mean Platelet Volume 9.8 fL (7.4-10.4); Monocytes # 0.6 10^3/uL (0.2-0.9); Neutrophils # 4.14 10^3/uL (1.8-7.7); Neutrophils % 61.1 %; Nucleated Red Blood Cells % 0 %; Platelet Count 166 10^3/cmm (130-400); Red Blood Count 4.13 10^6/uL (4.1-5.3); Red Cell Distribution Width 13.9 % (12.1-15.1); White Blood Count 6.8 10^3/uL (4.0-10.0)
[2020-01-11 21:03] LABS: Alanine Aminotransferase 20 U/L (0-41); Alkaline Phosphatase 98 IU/L (40-130); Anion Gap 13.2 (5-19); Aspartate Amino Transferase 16 U/L (0-40); Blood Urea Nitrogen 22 mg/dL (8-23); Carbon Dioxide 22 mmol/L (22-29); Chloride 106 mmol/L (98-107); Globulin 2.7 g/dL (1.3-4.6); Glucose 180 mg/dL (65-115); Osmolality Calculated 285 mOsm/kg (285-295); Potassium 4.2 mmol/L (3.5-5.1); Sodium 137 mmol/L (136-145); Total Bilirubin 0.3 mg/dL (0.15-1.2); Total Protein 6.7 g/dL (6.6-8.7)
[2020-01-11 21:12] VITALS: BP 171/85; PULSE 58; RESP 22; O2SAT 96
[2020-01-11 21:42] VITALS: BP 142/63; PULSE 57; RESP 20; O2SAT 95
== END 2020-01-11 21:43 | disposition home or self-care (01) ==
PROVIDERS: Emergency Provider Emergency Medicine; PCP Nurse Practitioner Family
DX: R42 Dizziness and giddiness (principal); Z85.038 Personal history of other malignant neoplasm of large intestine; I10 Essential (primary) hypertension; E78.5 Hyperlipidemia, unspecified; Z85.828 Personal history of other malignant neoplasm of skin; Z95.1 Presence of aortocoronary bypass graft; Z87.891 Personal history of nicotine dependence
CPT/HCPCS: 12345; 36415; 80053; 85025; 93005; 99282; 99283

== ENCOUNTER 2020-02-26 18:50 | Inpatient (IN) | payer MEDICARE, OTHER, SELFPAY ==
[2020-02-26 18:55] VITALS: BP 205/107; PULSE 88; RESP 18; TEMP 36.4; O2SAT 96; BMI 34.7
--- NOTE | 2020-02-26 19:16 | XRR_ITS ---
PROCEDURE INFORMATION: Exam: XR Chest, 1 View Exam date and time: 02/26/2020 7:21 PM Age: 79 years old Clinical indication: Prior surgery; Surgery date: 6+ months; Surgery type: Cabg; Patient HX: C/O L shoulder pain - chronic - denies new injury TECHNIQUE: Imaging protocol: XR of the chest Views: 1 view. COMPARISON: CR XR chest 1V portable [id number] 07/04/2019 9:52 AM FINDINGS: Lungs: Unremarkable. No consolidation. Pleural space: Unremarkable. No pleural effusion. No pneumothorax. Heart/Mediastinum: Unremarkable. No cardiomegaly. Bones/joints: Sternotomy wires are in place. Other findings: There has been no interval change comparing to prior examination XR/XR chest 1V portable [id number] IMPRESSION: 1. No acute findings. 2. Metallic sternotomy wires are in place.
--- NOTE | 2020-02-26 19:16 | XRR_ITS ---
PROCEDURE INFORMATION: Exam: XR Left Shoulder Exam date and time: 02/26/2020 7:21 PM Age: 79 years old Clinical indication: Left; Patient HX: C/O L shoulder pain - chronic - denies new injury TECHNIQUE: Imaging protocol: XR Left shoulder. Views: 2 or more views. COMPARISON: No relevant prior studies available. FINDINGS: Bones/joints: Negative for acute bony abnormality. Soft tissues: Normal. XR/XR shoulder LT min 2V* [id number] IMPRESSION: No acute findings.
--- NOTE | 2020-02-26 19:17 | ECG_ITS ---
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 Measurements Intervals Bunn Rate: 119 P: 38 MA: 101 QRS: 175 QRSD: 149 T: 16 QT: 258 QTc: 363 Interpretive Statements SINUS TACHYCARDIA WITH SHORT MA INTERVAL INDETERMINATE AXIS RIGHT BUNDLE BRANCH BLOCK LEFT POSTERIOR FASCICULAR BLOCK [QRS AXIS > 109, INFERIOR Q] ST DEPRESSION, CONSIDER SUBENDOCARDIAL INJURY Compared to ECG 01/11/2020 20:53:43 Short MA interval now present Indeterminate axis now present Left posterior fascicular block now present ST (T wave) deviation now present Sinus bradycardia no longer present First degree AV block no longer present Electronically Signed On 03-10-2020 22:05:58 CDT by Josseline Vargas M.D. [email or web address]
--- NOTE | 2020-02-26 19:21 | W.ED.EXTPRO ---
HPI - Extremity Problem General: Chief complaint: Extremity Injury, Upper Stated complaint: l shoulder pain Time Seen by Provider: 02/26/20 19:05 Source: patient Mode of arrival: ambulatory Limitations: no limitations History of Present Illness: HPI Narrative: Jesus is a very nice 79-year-old male comes in complaining of left shoulder plain. States the pain is in his left shoulder blade. He has had similar symptoms in the past. He states 2 other times he is been given a shot of some type of medicine and the pain is gone away. He denies any increased pain with movement. Patient was seen at [facility] and prescribed Flexeril but he states this is not helping. He has been taking Motrin which she says resolves the pain but then it comes back. He adamantly denies any chest pain, shortness of breath, diaphoresis, nausea vomiting, radiation of his pain or exertional worsening. Patient states he has had a heart attack in the past and at that time he had pain but it was in the middle of his back and this does feel like when he had that problem in the past. Patient is noted to be quite hypertensive here but he states he is having pain at this time. Associated symptoms: Deny chest pain, fever(s) or rash Review of Systems Const: Denies: fever(s), chills, body aches, fatigue, malaise or diaphoresis Eyes: Denies: change in vision, blurry vision, photophobia, eye discomfort, eye discharge, eye redness or yellow eyes ENMT: Denies: throat pain, odynophagia, hoarseness, swelling of lips/tongue, ear or mastoid pain, ear discharge, change in hearing or nasal discharge Card: Denies: chest pain, palpitations, irregular heart rhythm, edema, lightheadedness, syncope, pre-syncope, dyspnea on exertion or orthopnea Resp: Denies: dyspnea, productive cough, non-productive cough, wheezing, hemoptysis or chest congestion GI: Denies: abdominal pain, nausea, vomiting, hematemesis, coffee ground emesis, heartburn, diarrhea, constipation, GI cramping, hematochezia or melena : Denies: flank pain, dysuria, urinary frequency, urinary urgency or hematuria Musc: Reports: joint pain; Denies: neck pain, back pain, extremity pain, extremity swelling, joint swelling, joint redness, joint warmth or joint stiffness Skin/Breast: Denies: rash, pruritus, erythema, skin pain or skin tenderness Neuro: Denies: headache(s), numbness in extremities, weakness in extremities, sensory changes, lack of coordination, difficulty walking, dizziness, vertigo, confusion, Slurred speech present or seizure-like activity Varun/Lymph: Denies: easy bruising, easy bleeding, petechiae, purpura or enlarged lymph nodes All/Imm: Denies: urticaria, throat swelling, tongue swelling, facial swelling or acute wheezing PFSH ED PFSH: Medical History (Updated 02/26/20 @ 22:33 by Jesus Gomez MD) Acid reflux Anemia Atherosclerotic cardiovascular disease Bradycardia Colon cancer Essential hypertension Hypercholesterolemia Hyperlipidemia Hypertension PAD (peripheral artery disease) Skin cancer Somnolence, daytime Surgical History (Updated 02/26/20 @ 22:28 by Jesus Gomez MD) History of colon resection Hx of CABG Family History Father CAD (coronary artery disease) Mother CAD (coronary artery disease) Daughter Cancer Denies family history of Diabetes Clotting disorder Dementia Hyperlipidemia Psychiatric illness Chronic kidney disease (CKD) Suicide Anesthesia complication Bleeding disorder Family history of premature coronary artery disease Lung disease Hypertension Stroke Social History (Updated 02/26/20 @ 22:28 by Jesus Gomez MD) Smoking and tobacco status: former smoker Alcohol intake: never Substance/Drug Use: never Physical Exam Const: COMMON NORMALS: no acute distress, patient oriented x3, no limitations and alert GENERAL APPEARANCE: cooperative HENMT: COMMON NORMALS: normocephalic, atraumatic, external ears normal, EAC's normal and Normal external nose present HEAD & SCALP: normal to inspection, normocephalic and atraumatic FACE & SINUS: normal facial exam and face symmetric NOSE: Normal external nose present and Normal nares present EXTERNAL EAR: Yes external ears normal EXTERNAL AUDITORY CANAL: EAC's normal MOUTH: Normal oral and palatal mucosa present, lip normal and tongue normal Eye: COMMON NORMALS: Equal, round and reactive pupils present and conjunctivae normal GENERAL EYE: appearance normal, both eyes and all related structures ALIGNMENT: Yes alignment normal PERIORBITAL: periorbital findings normal EYELID: eyelids normal CONJUNCTIVA: Yes conjunctivae normal SCLERA: sclerae normal PUPIL: Yes Equal, round and reactive pupils present Neck/C-Spine: COMMON NORMALS: full ROM, no lymphadenopathy, supple, no meningeal signs and no JVD GENERAL: Yes normal visual inspection and Yes trachea midline Chest: COMMONS NORMALS: normal inspection of the chest and normal palpation of entire chest wall Resp: COMMON NORMALS: normal respiratory effort, No retractions, No use of accessory muscles and clear to auscultation bilaterally EFFORT & INSPECTION: Yes able to speak in complete sentences and Yes symmetric chest movement AUSCULTATION: clear to auscultation bilaterally, no crackles, no rales, no rhonchi and no wheezes Cardio: COMMON NORMALS: no JVD, regular rate, regular rhythm, S1 normal heart sound present and S2 normal heart sound present RATE: regular rate RHYTHM: regular rhythm HEART SOUNDS: S1 normal heart sound present, S2 normal heart sound present, no click, no gallops, no murmurs and no rubs GI: COMMON NORMALS: Soft to palpation and No hepatosplenomegaly present PALPATION: Yes Soft to palpation, No Tenderness to palpation present (GI), No Guarding due to palpation present (GI), No Rigid due to palpation, Yes No hepatosplenomegaly present, No Hernia present, No Palpable mass present and No Pulsatile mass present : COMMON NORMALS: Yes no CVA tenderness BLADDER/KIDNEY EXAM: Yes no CVA tenderness Back/Pelvis: COMMON NORMALS: no CVA tenderness, thoracic and lumbar spine normal to inspection, no thoracic nor lumbar tenderness and thoraco-lumbar ROM normal Extremity: COMMON NORMALS: normal to inspection, full ROM, capillary refill normal, no joint enlargement, no clubbing, cyanosis or edema and no calf tenderness Neuro: COMMON NORMALS: patient oriented x3, CN's II-XII intact bilaterally, moves all extremities, no focal motor deficits and no sensory deficits noted SENSORIUM/ORIENTATION: Yes alert MENINGEAL SIGNS: Yes no meningeal signs SPEECH: speech normal Psych: COMMON NORMALS: mental status grossly normal, Normal thought process present, cooperative, normal affect, speech normal and activity/motor behavior normal SPEECH: Yes normal speech THOUGHT PROCESS: Normal thought process present Skin: COMMON NORMALS: no rashes or lesions noted, turgor normal, no jaundice, no petechiae and no mottling GENERAL SKIN EXAM: no rashes or lesions noted and turgor normal Course Vital Signs: Vital signs: Vital Signs Temperature 97.6 F 02/26/20 18:55 Pulse Rate 64 02/26/20 22:26 Respiratory Rate 16 02/26/20 22:26 Blood Pressure 176/71 02/26/20 22:19 Pulse Oximetry 96 02/26/20 22:26 MDM - Extremity (Nontraumatic) MDM Narrative: Medical decision making narrative: Jesus is a nice 9-year-old male comes in with back pain somewhat like when he previously had an DE but also when he is previously had musculoskeletal shoulder pain. Patient's blood pressure is elevated along with his troponin. His EKG is unchanged from previous. Patient will go ahead and be admitted for formal cardiac rule out due to his multiple comorbidities and elevated heart score. Case was endorsed to Dr. Gomez and he agrees to admission. Lab Data: Labs: Lab Results 02/26/20 02/26/20 02/26/20 Range/Units 19:30 19:30 19:30 WBC 6.4 (4.0-10.0) 10^3/ uL RBC 3.99 L (4.1-5.3) 10^6/u L Hgb 12.3 (11.7-16.6) g/dL Hct 36.3 L (42.0-52.0) % MCV 91.0 (80-94) fL MCH 30.8 (28.0-34.0) pg MCHC 33.9 (30.0-36.0) g/dL RDW 13.5 (12.1-15.1) % Plt Count 165 (130-400) 10^3/c mm MPV 9.8 (7.4-10.4) fL Neut % (Auto) 52.9 % Lymph % (Auto) 33.6 % Major % (Auto) 10.2 % Eos % (Auto) 2.7 % Baso % (Auto) 0.3 % Neut # (Auto) 3.38 (1.8-7.7) 10^3/u L Lymph # (Auto) 2.2 (0.8-4.8) 10^3/u L Major # (Auto) 0.7 (0.2-0.9) 10^3/u L Eos # (Auto) 0.2 (0.0-0.8) 10^3/u L Baso # (Auto) 0.0 (0.0-0.1) 10^3/u L Nucleated RBC % (a uto) 0 % Nucleated RBCs # 0.0 /100WBC PT (12.1-14.9) SECO NDS INR (0.8-1.2) Specimen Type Sample Site ABG pH (7.35-7.45) ABG pCO2 (35-45) mmHg ABG pO2 (80.0-100.0) mmH g ABG HCO3 (22-26) mmol/L ABG Base Excess (-2.0-2.0) mmol/ L Brandan Test Hematocrit (42-52) % O2 Delivery Device Tobacco Sampler ID Sodium 137 (136-145) mmol/L Potassium 4.1 (3.5-5.1) mmol/L Chloride 107 (98-107) mmol/L Carbon Dioxide 18 L (22-29) mmol/L Anion Gap 16.1 (5-19) BUN 19 (8-23) mg/dL Creatinine 1.0 (0.7-1.2) mg/dL GFR Calculation Not Reportable Glucose 115 (65-115) mg/dL Calculated Osmolal ity 287 (285-295) mOsm/k g Calcium 8.8 (8.5-10.5) mg/dL Total Bilirubin 0.4 (0.15-1.2) mg/dL AST 16 (0-40) U/L ALT 21 (0-41) U/L Alkaline Phosphata se 98 (40-130) IU/L Troponin T Baselin e 41 H (0-15) ng/L NT-Pro-B Natriuret Pep (0-450) pg/mL Total Protein 6.5 L (6.6-8.7) g/dL Albumin 4.0 (3.5-5.2) g/dL Globulin 2.5 (1.3-4.6) g/dL Lipase 42 (13-60) U/L TSH (0.27-4.20) uIU/ mL 02/26/20 02/26/20 02/26/20 Range/Units 19:30 19:30 19:30 WBC (4.0-10.0) 10^3/ uL RBC (4.1-5.3) 10^6/u L Hgb (11.7-16.6) g/dL Hct (42.0-52.0) % MCV (80-94) fL MCH (28.0-34.0) pg MCHC (30.0-36.0) g/dL RDW (12.1-15.1) % Plt Count (130-400) 10^3/c mm MPV (7.4-10.4) fL Neut % (Auto) % Lymph % (Auto) % Major % (Auto) % Eos % (Auto) % Baso % (Auto) % Neut # (Auto) (1.8-7.7) 10^3/u L Lymph # (Auto) (0.8-4.8) 10^3/u L Major # (Auto) (0.2-0.9) 10^3/u L Eos # (Auto) (0.0-0.8) 10^3/u L Baso # (Auto) (0.0-0.1) 10^3/u L Nucleated RBC % (a uto) % Nucleated RBCs # /100WBC PT 13.60 (12.1-14.9) SECO NDS INR 1.01 (0.8-1.2) Specimen Type Sample Site ABG pH (7.35-7.45) ABG pCO2 (35-45) mmHg ABG pO2 (80.0-100.0) mmH g ABG HCO3 (22-26) mmol/L ABG Base Excess (-2.0-2.0) mmol/ L Brandan Test Hematocrit (42-52) % O2 Delivery Device Tobacco Sampler ID Sodium (136-145) mmol/L Potassium (3.5-5.1) mmol/L Chloride (98-107) mmol/L Carbon Dioxide (22-29) mmol/L Anion Gap (5-19) BUN (8-23) mg/dL Creatinine (0.7-1.2) mg/dL GFR Calculation Glucose (65-115) mg/dL Calculated Osmolal ity (285-295) mOsm/k g Calcium (8.5-10.5) mg/dL Total Bilirubin (0.15-1.2) mg/dL AST (0-40) U/L ALT (0-41) U/L Alkaline Phosphata se (40-130) IU/L Troponin T Baselin e (0-15) ng/L NT-Pro-B Natriuret Pep 560 H (0-450) pg/mL Total Protein (6.6-8.7) g/dL Albumin (3.5-5.2) g/dL Globulin (1.3-4.6) g/dL Lipase (13-60) U/L TSH 1.62 (0.27-4.20) uIU/ mL 10//20 Range/Units 20:10 WBC (4.0-10.0) 10^3/ uL RBC (4.1-5.3) 10^6/u L Hgb (11.7-16.6) g/dL Hct (42.0-52.0) % MCV (80-94) fL MCH (28.0-34.0) pg MCHC (30.0-36.0) g/dL RDW (12.1-15.1) % Plt Count (130-400) 10^3/c mm MPV (7.4-10.4) fL Neut % (Auto) % Lymph % (Auto) % Major % (Auto) % Eos % (Auto) % Baso % (Auto) % Neut # (Auto) (1.8-7.7) 10^3/u L Lymph # (Auto) (0.8-4.8) 10^3/u L Major # (Auto) (0.2-0.9) 10^3/u L Eos # (Auto) (0.0-0.8) 10^3/u L Baso # (Auto) (0.0-0.1) 10^3/u L Nucleated RBC % (a uto) % Nucleated RBCs # /100WBC PT (12.1-14.9) SECO NDS INR (0.8-1.2) Specimen Type Arterial Sample Site Radial, left ABG pH 7.34 L (7.35-7.45) ABG pCO2 36.2 (35-45) mmHg ABG pO2 76.8 L (80.0-100.0) mmH g ABG HCO3 19.6 L (22-26) mmol/L ABG Base Excess -5.5 L (-2.0-2.0) mmol/ L Brandan Test Pos Hematocrit 37.5 L (42-52) % O2 Delivery Device None Tobacco Sampler ID ellpe Sodium (136-145) mmol/L Potassium (3.5-5.1) mmol/L Chloride (98-107) mmol/L Carbon Dioxide (22-29) mmol/L Anion Gap (5-19) BUN (8-23) mg/dL Creatinine (0.7-1.2) mg/dL GFR Calculation Glucose (65-115) mg/dL Calculated Osmolal ity (285-295) mOsm/k g Calcium (8.5-10.5) mg/dL Total Bilirubin (0.15-1.2) mg/dL AST (0-40) U/L ALT (0-41) U/L Alkaline Phosphata se (40-130) IU/L Troponin T Baselin e (0-15) ng/L NT-Pro-B Natriuret Pep (0-450) pg/mL Total Protein (6.6-8.7) g/dL Albumin (3.5-5.2) g/dL Globulin (1.3-4.6) g/dL Lipase (13-60) U/L TSH (0.27-4.20) uIU/ mL Imaging Data^: CXR: Attestation: I personally reviewed and interpreted this imaging study as follows: My impression: Cardiomegaly with mild vascular prominence. EKG Data^: EKG 1: Attestation: I personally reviewed and interpreted this EKG as follows: EKG interpretation date: 02/26/20 EKG interpretation time: 19:43 Interpretation: Normal sinus rhythm at 74 beats a minute, right bundle branch block, no acute ST-T wave changes. Unchanged from previous. Discharge Plan Discharge Patient Disposition: Placed in Observation Admit Provider: Jesus Gomez Clinical Impression: Elevated troponin Condition: Stable Referrals: Michelle Oh FNP [Primary Care Provider] - Discharge Date/Time: 02/26/20 22:36 Coding Level of Care Code ED Turning Machine Set Up Operator for Chg Fwd Exam Comprehensive
[2020-02-26 19:43] LABS: Basophils % 0.3 %; Eosinophils # 0.2 10^3/uL (0.0-0.8); Eosinophils % 2.7 %; Hematocrit 36.3 % (42.0-52.0); Hemoglobin 12.3 g/dL (11.7-16.6); Lymphocytes # 2.2 10^3/uL (0.8-4.8); Lymphocytes % 33.6 %; Mean Corpuscular HGB Conc 33.9 g/dL (30.0-36.0); Mean Corpuscular Hemoglobin 30.8 pg (28.0-34.0); Mean Platelet Volume 9.8 fL (7.4-10.4); Monocytes # 0.7 10^3/uL (0.2-0.9); Monocytes % 10.2 %; Neutrophils # 3.38 10^3/uL (1.8-7.7); Neutrophils % 52.9 %; Nucleated Red Blood Cells % 0 %; Platelet Count 165 10^3/cmm (130-400); Red Blood Count 3.99 10^6/uL (4.1-5.3); Red Cell Distribution Width 13.5 % (12.1-15.1); White Blood Count 6.4 10^3/uL (4.0-10.0)
[2020-02-26 19:51] LABS: Alanine Aminotransferase 21 U/L (0-41); Alkaline Phosphatase 98 IU/L (40-130); Anion Gap 16.1 (5-19); Aspartate Amino Transferase 16 U/L (0-40); Blood Urea Nitrogen 19 mg/dL (8-23); Calcium 8.8 mg/dL (8.5-10.5); Carbon Dioxide 18 mmol/L (22-29); Chloride 107 mmol/L (98-107); Globulin 2.5 g/dL (1.3-4.6); Glucose 115 mg/dL (65-115); Lipase 42 U/L (13-60); Osmolality Calculated 287 mOsm/kg (285-295); Potassium 4.1 mmol/L (3.5-5.1); Sodium 137 mmol/L (136-145); Total Bilirubin 0.4 mg/dL (0.15-1.2); Total Protein 6.5 g/dL (6.6-8.7)
[2020-02-26 19:52] LABS: Troponin(5th) Baseline 41 ng/L (0-15)
[2020-02-26 19:58] VITALS: RESP 16
[2020-02-26] MEDS: sodium chloride 0.9% 1,000 ML 100 ML IV (19:58)
[2020-02-26] MEDS: morphine 4 mg/mL SDV 1 mL IVP (19:58)
[2020-02-26] MEDS: ondansetron 2 mg/ML SDV 2 mL 4 MG IVP (19:58)
[2020-02-26] MEDS: aspirin 325 mg Tablet PO (19:58)
[2020-02-26] MEDS: labetalol 5 mg/mL SDV 20mL 10 MG IVP (20:03)
[2020-02-26 20:29] LABS: ABG PCO2 36.2 mmHg (35-45); ABG PH Result 7.34 (7.35-7.45); Arterial Blood Gas Hematocrit 37.5 % (42-52); Base Excess ABG -5.5 mmol/L (-2.0-2.0); Blood Gas Allen Test Pos; Blood Gas Sample Site Radial, left; Blood Gas Sample Type Arterial; HCO3 ABG 19.6 mmol/L (22-26); PO2 ABG 76.8 mmHg (80.0-100.0)
[2020-02-26 20:34] VITALS: BP 158/70; PULSE 62; RESP 16; O2SAT 95
--- NOTE | 2020-02-26 22:12 | CTR_ITS ---
PROCEDURE INFORMATION: Exam: CT Angiography Chest With Contrast Exam date and time: 02/26/2020 10:46 PM Age: 79 years old Clinical indication: Prior surgery; Surgery type: Cabg; Patient HX: C/O left shoulder and chest pain; Additional info: Aortic dissecion TECHNIQUE: Imaging protocol: Computed tomographic angiography of the chest with intravenous contrast. 3D rendering (Not supervised by radiologist): MIP and/or 3D reconstructed images were created by the technologist. Radiation optimization: All CT scans at this facility use at least one of these dose optimization techniques: automated exposure control; mA and/or kV adjustment per patient size (includes targeted exams where dose is matched to clinical indication); or iterative reconstruction. Contrast material: OMNI 350; Contrast volume: 95 ml; Contrast route: INTRAVENOUS (IV); COMPARISON: CR XR chest 1V portable [id number] 02/26/2020 7:27 PM RADIATION DOSE METRICS: Total DLP (mGy-cm): 2011.97 FINDINGS: Pulmonary arteries: No pulmonary embolus. Aorta: The ascending thoracic aorta measures 3.7 cm. Lungs: There is mild ground-glass opacity in the lung bases compatible with mild pneumonitis versus atelectasis. Bibasilar linear atelectasis versus scarring is also noted. There is bronchiectasis without mucous plugging. There is no dense lobar consolidation. There are moderate emphysematous changes. Pleural space: Unremarkable. No pneumothorax. No pleural effusion. Heart: Sternotomy wires and mediastinal surgical clips are present, consistent with previous coronary arterial bypass grafting. Mediastinal space: A small hiatal hernia is present. Lymph nodes: Unremarkable. No enlarged lymph nodes. Gallbladder and bile ducts: Multiple calcified gallstones are present. There is no common bile duct dilation. There is no wall thickening or pericholecystic fluid to suggest cholecystitis. Kidneys and ureters: There is a 3.2 cm midpole simple cyst in the right kidney. No follow-up is necessary. Bones/joints: There are moderate degenerative changes in the spine. No acute bony abnormality. Soft tissues: Unremarkable. Other findings: There is no aneurysm or dissection. CT/CT angio chest [id number] IMPRESSION: 1. No aneurysm or dissection. No pulmonary embolus. 2. There is mild ground-glass opacity in the lung bases compatible with mild pneumonitis versus atelectasis. COMMENTS: Consistent with the [employer]'s Incidental Findings Committee white paper (J Am Alexandra Radiol 2018): Any incidental renal lesion less than 1 cm or classified as too small to characterize, or any incidental cystic renal lesion characterized as simple-appearing, is likely benign. No follow-up imaging is recommended for these lesions per consensus recommendations based on imaging criteria. Radiation Dose CTDIVOL = (mGy): DLP = 2012.97 (mGy-cm)
[2020-02-26 22:19] VITALS: BP 176/71; PULSE 62; RESP 16; O2SAT 95
--- NOTE | 2020-02-26 22:25 | PM.HP ---
Providers/Chief Complaint Admitting Physician: Jesus Gomez MD Primary Care Provider: TREY Rey Chief Complaint: l shoulder pain History of Present Illness Jesus Morris is a 79 year old male with a past medical history of CABG x3, right carotid artery stenosis status post carotid endarterectomy, history of colon cancer status post resection, hypertension, hyperlipidemia, GERD, BPH, who presents to [facility] due to the right scapular pain. Patient states that for the last week, he has had pain along the right medial aspect of the scapula, no pain with range of motion, pain does not radiate area, no ulcers or shortness of breath, no lightheadedness, no dizziness, no neck pain, no clicking, no popping, no history of shoulder injury, describes the pain as a burning sensation. Episodes occur on a daily basis, last up to 30 minutes, have not becoming more frequent, have not become more intense. Patient saw his primary care, and was given Flexeril without improvement, does increase to some degree with NSAIDs. Patient tells me that when he had his heart attack, he had similar pain, posterior shoulder pain, he never actually had chest pain or shortness of breath with these coronary artery disease. 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 No episodes of chest pain, no episodes of shortness of breath. No fevers, no chills, no exposure to COVID-19. No recent trauma, no injuries, no exposure to COVID-19. Review of Systems Const: Denies: fever(s), chills, fatigue or malaise Eyes: Denies: change in vision or blurry vision ENMT: Denies: nasal congestion Resp: Denies: dyspnea, productive cough, non-productive cough or wheezing GI: Denies: abdominal pain, nausea, vomiting, hematemesis, diarrhea, constipation, hematochezia or melena : Denies: flank pain, difficulty urinating, dysuria or urinary frequency Musc: Denies: neck pain or back pain Skin/Breast: Denies: rash Neuro: Denies: headache(s), dizziness or vertigo Psych: Denies: anxiety or depression Endo: Denies: polyuria or polydipsia Medications/Allergies Home Medications Medication Instructions Recorded Confirmed Last Taken Type atorvastatin 40 mg PO DAILY 07/04/19 01/11/20 01/10/20 History finasteride 5 mg PO DAILY 07/04/19 01/11/20 01/11/20 History losartan 100 mg PO DAILY 07/04/19 01/11/20 01/11/20 History pantoprazole [Protonix] 40 mg PO DAILY 07/04/19 01/11/20 01/11/20 History tamsulosin 0.4 mg PO DAILY 07/04/19 01/11/20 01/11/20 History trazodone 100 mg PO BID 07/04/19 01/11/20 01/10/20 History metoprolol tartrate 50 mg tablet 50 mg PO BID 08/31/19 01/11/20 09/25/19 History Vitamin C 1,000 mg PO Q12H 09/25/19 01/11/20 01/11/20 History gabapentin 300 mg PO BID 09/25/19 01/11/20 09/25/19 History vitamin A 8,000 unit PO DAILY 09/25/19 01/11/20 01/11/20 History metronidazole 500 mg PO TID #21 tab 09/26/19 01/11/20 Unknown Rx Allergies Allergy/AdvReac Type Severity Reaction Status Date / Time No Known Allergies Allergy Verified 01/11/20 21:04 PFSH Acute PFSH: Medical History (Updated 02/26/20 @ 22:33 by Jesus Gomez MD) Acid reflux Anemia Atherosclerotic cardiovascular disease Bradycardia Colon cancer Essential hypertension Hypercholesterolemia Hyperlipidemia Hypertension PAD (peripheral artery disease) Skin cancer Somnolence, daytime Surgical History (Updated 02/26/20 @ 22:28 by Jesus Gomez MD) History of colon resection Hx of CABG Family History Father CAD (coronary artery disease) Mother CAD (coronary artery disease) Daughter Cancer Denies family history of Diabetes Clotting disorder Dementia Hyperlipidemia Psychiatric illness Chronic kidney disease (CKD) Suicide Anesthesia complication Bleeding disorder Family history of premature coronary artery disease Lung disease Hypertension Stroke Social History (Updated 02/26/20 @ 22:28 by Jesus Gomez MD) Smoking and tobacco status: former smoker Alcohol intake: never Substance/Drug Use: never Vitals/I&O/Wt Last Vital Signs Temp 97.6 F 02/26/20 18:55 Pulse 62 02/26/20 22:19 Resp 16 02/26/20 22:19 BP 176/71 02/26/20 22:19 Pulse Ox 95 02/26/20 22:19 02/26/20 02/26/20 02/26/20 06:59 14:59 22:59 Intake Total 100 / 100 Balance 100 / 100 Weight last 48 hrs Weight 106.594 kg Physical Exam Const: COMMON NORMALS: no acute distress and patient oriented x3 GENERAL APPEARANCE: cooperative and comfortable HENMT: COMMON NORMALS: normocephalic HEAD & SCALP: normocephalic Eye: COMMON NORMALS: Equal, round and reactive pupils present and EOMs intact bilaterally GENERAL EYE: appearance normal, both eyes and all related structures PUPIL: Yes Equal, round and reactive pupils present Neck/C-Spine: COMMON NORMALS: full ROM, no lymphadenopathy, no JVD and Thyroid normal THYROID: Thyroid normal Lymph: LYMPHATIC: no lymphadenopathy noted Resp: COMMON NORMALS: normal respiratory effort, No retractions, No use of accessory muscles and clear to auscultation bilaterally AUSCULTATION: clear to auscultation bilaterally Cardio: COMMON NORMALS: no JVD, regular rate, regular rhythm, S1 normal heart sound present, S2 normal heart sound present, No gallops present (Cardio), No clicks present (Cardio) and No murmurs present (Cardio) RATE: regular rate RHYTHM: regular rhythm HEART SOUNDS: S1 normal heart sound present and S2 normal heart sound present GI: COMMON NORMALS: Normal to inspection, nondistended, normoactive bowel sounds present, Soft to palpation, non-tender and No hepatosplenomegaly present PALPATION: Yes Soft to palpation and Yes No hepatosplenomegaly present Extremity: COMMON NORMALS: normal to inspection, full ROM and no pedal edema Neuro: COMMON NORMALS: patient oriented x3, CN's II-XII intact bilaterally, moves all extremities and no focal motor deficits Psych: COMMON NORMALS: mental status grossly normal, Normal thought process present and cooperative THOUGHT PROCESS: Normal thought process present Data : 02/26/20 19:30 02/26/20 19:30 A&P Assessment and plan (1) Localized pain of right shoulder joint: -Pain is along medial border of right scapula, no pain with range of motion, no pain upon palpation, sounds a lot like referred pain -Patient is low risk appropriate for cardiac etiology, aortic dissection, cervical radiculopathy, or isolated shoulder arthritis -Patient reports that when he happens open heart surgery, his heart attacks, he had pain in a similar fashion in location -Risk factors include more than 40-year history of smoking, quit many years ago, found history of CAD, has a history of CABG x3 -Baseline troponin 41 -T wave inversions inferior leads, right bundle branch block PLAN: -Order CTA of the chest to rule out aortic dissection -Aspirin, statin, beta-terry after dissection has been ruled out -Order cardiac echocardiogram, n.p.o. midnight, for cardiac stress testing tomorrow morning -Telemetry monitoring, serial troponins, serial EKGs, -Monitor for worsening pain, monitor hemodynamics -Patient is a full code -Lovenox for DVT prophylaxis Status: Acute (2) NSTEMI (non-ST elevated myocardial infarction): Status: Acute (3) Atherosclerotic cardiovascular disease: Status: Acute (4) Hyperlipidemia: Status: Acute Qualifiers: Hyperlipidemia type: mixed hyperlipidemia Qualified Code(s): E78.2 - Mixed hyperlipidemia (5) Essential hypertension: Status: Acute (6) Colon cancer: Status: Acute Attestations Medical Necessity Statement*: Patient requires hospitalization, outpatient with observation, for nstemi Coding Level of Care Code Acute Rn Medical Surgical for [facility] Diagnoses Localized pain of right shoulder joint M25.511 NSTEMI (non-ST elevated myocardial infarction) I21.4 Atherosclerotic cardiovascular disease I25.10 Hyperlipidemia E78.2 Hyperlipidemia type: mixed hyperlipidemia Essential hypertension I10 Colon cancer C18.9
[2020-02-26 22:26] VITALS: PULSE 64; RESP 16; O2SAT 96
[2020-02-26 22:39] LABS: NT Pro B Type Natriuretic Pept 560 pg/mL (0-450)
[2020-02-26] MEDS: iohexol 350 mg/mL 100 mL Btl IV (22:54)
[2020-02-26 23:02] VITALS: BP 199/120; PULSE 68; RESP 30; TEMP 36.4; O2SAT 92
--- NOTE | 2020-02-26 23:15 | PC.NURSE ---
Dr. Gomez notified of blood pressure of 199/120.
[2020-02-26 23:19] LABS: INR 1.01 (0.8-1.2)
[2020-02-26 23:33] LABS: Thyroid Stimulating Hormone 1.62 uIU/mL (0.27-4.20)
[2020-02-27] VITALS (8 sets, daily range): BP systolic 108–192; BP diastolic 53–95; PULSE 57–80; RESP 19–36; TEMP 36.3–36.8; O2SAT 90–97
[2020-02-27 01:34] LABS: Troponin 5 6HR 53.67 ng/L (0-15)
[2020-02-27 01:46] LABS: Troponin 5 6HR Delta 12.67 ng/L (0-12)
[2020-02-27] MEDS: ascorbic acid 500 mg Tablet 1000 MG PO ×2 (02:30→11:45)
[2020-02-27] MEDS: enoxaparin 40 mg/0.4 mL Syringe SUBCUT (02:30)
[2020-02-27] MEDS: sodium chloride 0.9% 1,000 ML 75 ML IV ×2 (02:31→11:46)
[2020-02-27 05:52] LABS: Basophils % 0.7 %; Eosinophils # 0.2 10^3/uL (0.0-0.8); Eosinophils % 2.9 %; Hematocrit 36.3 % (42.0-52.0); Hemoglobin 12.1 g/dL (11.7-16.6); Lymphocytes # 2.1 10^3/uL (0.8-4.8); Mean Corpuscular HGB Conc 33.3 g/dL (30.0-36.0); Mean Corpuscular Hemoglobin 30.7 pg (28.0-34.0); Mean Corpuscular Volume 92.1 fL (80-94); Monocytes # 0.6 10^3/uL (0.2-0.9); Monocytes % 10.6 %; Neutrophils # 2.57 10^3/uL (1.8-7.7); Neutrophils % 47.2 %; Nucleated Red Blood Cells % 0 %; Platelet Count 143 10^3/cmm (130-400); Red Blood Count 3.94 10^6/uL (4.1-5.3); Red Cell Distribution Width 13.5 % (12.1-15.1); White Blood Count 5.5 10^3/uL (4.0-10.0)
[2020-02-27 06:33] LABS: Alanine Aminotransferase 18 U/L (0-41); Albumin Level 3.6 g/dL (3.5-5.2); Alkaline Phosphatase 95 IU/L (40-130); Aspartate Amino Transferase 14 U/L (0-40); Blood Urea Nitrogen 14 mg/dL (8-23); Calcium 8.7 mg/dL (8.5-10.5); Carbon Dioxide 20 mmol/L (22-29); Chloride 107 mmol/L (98-107); Globulin 2.4 g/dL (1.3-4.6); Glucose 110 mg/dL (65-115); Magnesium 1.7 mg/dL (1.7-2.3); Osmolality Calculated 289 mOsm/kg (285-295); Phosphorus 3.1 mg/dL (2.5-4.5); Sodium 139 mmol/L (136-145); Total Bilirubin 0.5 mg/dL (0.15-1.2)
[2020-02-27 06:45] LABS: Chol HDL Ratio 4.84 mg/dL (1.0-5.00); Cholesterol 121 mg/dL (0-200); HDL Cholesterol 25 mg/dL (60-100); LDL Cholesterol Calculated 49 mg/dL (50-129); LDL HDL Ratio 1.96 RATIO (0.00-3.22); Triglycerides 234 mg/dL (0-150)
--- NOTE | 2020-02-27 07:00 | USCV_ITS ---
Jesus Morris Age: 79 Gender: M : 1940 Exam Date: 02/27/2020 06:40 Ordering Phys: Jesus Gomez MD Technologist: Alverto Arce Exam Location: [facility] [place] Indication: SOB BP: 170 / 66 HR: 68 Rhythm: Sinus Technical Quality: Fair MEASUREMENTS (Male / Female) Normal Values 2D ECHO LV Diastolic Diameter PLAX 5.7 cm 4.2 - 5.9 / 3.9 - 5.3 cm LV Systolic Diameter PLAX 3.4 cm IVS Diastolic Thickness 0.8 cm 0.6 - 1.0 / 0.6 - 0.9 cm IVS Systolic Thickness 1.3 cm LVPW Diastolic Thickness 1.1 cm 0.6 - 1.0 / 0.6 - 0.9 cm LVPW Systolic Thickness 1.4 cm LVOT Diameter 2.1 cm LV Ejection Fraction 2D Teich 70.9 % LV Ejection Fraction MOD 2C 60.2 % LV Ejection Fraction 2C AL 60.0 % LA Diameter 4.6 cm LA Width 4.3 cm LA Height 4.7 cm RA Width 4.1 cm RA Height 4.8 cm M-MODE LV Diastolic Diameter MM 5.4 cm 4.2 - 5.9 / 3.9 - 5.3 cm LV Systolic Diameter MM 3.8 cm LV Ejection Fraction MM Teich 55.3 % IVS Diastolic Thickness MM 1.4 cm 0.6 - 1.0 / 0.6 - 0.9 cm IVS Systolic Thickness MM 1.4 cm LVPW Diastolic Thickness MM 1.2 cm 0.6 - 1.0 / 0.6 - 0.9 cm LVPW Systolic Thickness MM 2.0 cm RV Diastolic Diameter MM 1.8 cm Aortic Annulus Diameter 4.3 cm LA Ao Ratio MM 1.2 MV E Point Septal Separation 1.5 cm DOPPLER AV Peak Velocity 214.0 cm/s MV Area PHT 4.4 cm squared Mitral E to A Ratio 0.9 MV E' Velocity 47.5 cm/s Mitral E to MV E' Ratio 10.7 Mitral E to LV E' Lateral Ratio 9.2 Mitral E to LV E' Septal Ratio 12.8 TV Peak E Velocity 121.0 cm/s Right Atrial Pressure 3.0 mmHg PV Peak Velocity 90.0 cm/s FINDINGS Left Ventricle Normal left ventricular size, systolic function and wall thickness, with no regional wall motion abnormalities. LV EF is 50-55%. Normal left ventricular wall thickness. Diastolic function is abnormal. Normal filling pressures Right Ventricle The right ventricle is normal in size and function. Right Atrium The right atrium is not well visualized Left Atrium The left atrium is normal in size. Mitral Valve Structurally normal mitral valve without significant stenosis or prolapse. There is no mitral regurgitation. Aortic Valve Aortic valve is not well visualized. Mild aortic regurgitation is noted. There is mild aortic stenosis with mean gradient across the valve of 10mmHg Tricuspid Valve Structurally normal tricuspid valve without significant stenosis or regurgitation. Insufficient TR jet to calculate RVSP. Pulmonic Valve Structurally normal pulmonic valve without significant stenosis. There is no pulmonic regurgitation. Pericardium Normal pericardium without effusion. Aorta Normal ascending aorta dimension. CONCLUSIONS LV systolic function is normal with EF of 50-55% Diastolic function is abnormal. Normal filling pressures Aortic valve is not well visualized, however,mild aortic regurgitation and mild aortic stenosis is noted with mean gradient across the valve of 10mmHg. No comparison studies are available Toby Quinn MD (Electronically Signed) Final Date: 27 February 2020 09:18 S
[2020-02-27] MEDS: tamsulosin 0.4 mg Capsule PO (08:14)
[2020-02-27] MEDS: pantoprazole DR 40 mg Tablet PO (08:14)
[2020-02-27] MEDS: finasteride 5 mg Tablet PO (08:15)
[2020-02-27] MEDS: aspirin 81 mg EC Tablet PO (08:15)
[2020-02-27] MEDS: losartan 50 mg Tablet 100 MG PO (08:15)
[2020-02-27] MEDS: gabapentin 300 mg Capsule PO ×2 (08:15→17:26)
[2020-02-27] MEDS: metoprolol tartrate 50 mg Tablet PO (08:17)
--- NOTE | 2020-02-27 10:02 | PC.CHAP ---
Pastoral Care Encounter/Spiritual Assessment Type of Contact [] Declined government affairs director visit [] Patient/Family/Request visit [] Outpatient visit [] Follow-up visit [] Physician referral [] Code/Alert [x] Routine visit [] Staff referral [] Actively dying [] Patient sleeping [] Family support [] [] Out of room [] Palliative care [] [] Receiving care in room [] Pre-surgical visit [] Trauma [] Long length of stay [] ICU visit [] Other: Relational/Emotional Strength [] Patient feels connected with others/family/visitors/staff [] Distress [] Loneliness/isolation [] Abandonment Spirituality of Patient [] Person of July [] Attends Jewish of their July [] Believes in Prayer [] Reads Bible or Religion materials [] There are Spiritual issues to be addressed 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 [x] Prayer [x] Active listening [x] Non-anxious presence [x] Spiritual/emotional support [] Crisis/trauma care [] Spiritual counseling [] Bereavement support [] Provided bereavement packet [] Provided Bible/devotional materials [] Provided toy/stuffed animal, coloring book to patient or family member [] Provided Communion [] Anointing/[place] [] Salvation [x] Completed spiritual assessment [] Other: Impact on Illness or Injury [] Angry [] Fearful [] Anxious [] Often cries [] Exhaustion [] Unable to work [] Unable to attend catholic [] Unable to walk/stand [] Unable to read [] Unable to drive [] Unable to eat/drink [] Unable to sleep [] Unable to be with family [] Patient intubated [] Other: Summary Patient friend of chaplains. Resting well, not sure cause of pain. Time spent with patient 10 min
--- NOTE | 2020-02-27 13:23 | P.PN_ITS ---
Subjective Subjective: Interval history: Patient resting comfortably in bed at time of exam. He denied any chest pain with rest. Stated that his pain recurred while working outside on his lawnmower yesterday radiating to his left shoulder blade. He denied any specific rotational movements that made his pain worse. Denies any pain to palpation over the shoulder. Patient reported that he follows with Dr. Recinos in the outpatient setting, reported that he had a three-vessel CABG in the . Vitals/I&O/Wt Last Vital Signs Temp 97.9 F 02/27/20 11:09 Pulse 59 L 02/27/20 11:09 Resp 36 H 02/27/20 11:09 BP 126/53 02/27/20 11:09 Pulse Ox 90 02/27/20 11:09 02/26/20 02/27/20 02/27/20 22:59 06:59 14:59 Intake Total 100 / 100 200 / 300 1048.75 / 1048.75 Output Total 1000 / 1000 Balance 100 / 100 200 / 300 48.75 / 48.75 Weight last 48 hrs Weight 106.594 kg Physical Exam Const: COMMON NORMALS: patient oriented x3 and alert GENERAL APPEARANCE: cooperative ORIENTATION/CONSCIOUSNESS: Yes awake, Yes oriented to person, Yes oriented to place and Yes oriented to time HENMT: COMMON NORMALS: normocephalic and atraumatic HEAD & SCALP: normocephalic and atraumatic Eye: COMMON NORMALS: Equal, round and reactive pupils present PUPIL: Yes Equal, round and reactive pupils present Neck/C-Spine: COMMON NORMALS: supple GENERAL: Yes normal visual inspection Resp: COMMON NORMALS: normal respiratory effort and clear to auscultation bilaterally EFFORT & INSPECTION: Yes able to speak in complete sentences AUSCULTATION: clear to auscultation bilaterally, no rhonchi and no wheezes Cardio: COMMON NORMALS: regular rate and regular rhythm RATE: regular rate RHYTHM: regular rhythm GI: COMMON NORMALS: Soft to palpation and non-tender INSPECTION: No abdominal distension AUSCULTATION: Yes normoactive bowel sounds PALPATION: Yes Soft to palpation Back/Pelvis: OTHER: No tenderness to palpation in the paraspinal muscles in the back or in the parascapular region Extremity: COMMON NORMALS: no clubbing, cyanosis or edema and no calf tenderness Neuro: COMMON NORMALS: patient oriented x3, CN's II-XII intact bilaterally, moves all extremities and no focal motor deficits SENSORIUM/ORIENTATION: Yes alert, Yes oriented to person, Yes oriented to place and Yes oriented to time SPEECH: speech normal Psych: COMMON NORMALS: mental status grossly normal and cooperative Skin: COMMON NORMALS: no rashes or lesions noted GENERAL SKIN EXAM: no rashes or lesions noted Data : 02/27/20 05:24 02/27/20 05:24 A&P Assessment and plan (1) Localized pain of right shoulder joint: CTA performed shows no evidence of any PE, Ascending thoracic aorta measured 3.7 cm. Patient does not have any reproducible pain on musculoskeletal exam XR shows no acute findings Status: Acute (2) NSTEMI (non-ST elevated myocardial infarction): Patient does have delta troponin greater than 10. Typical presentation but due to his history of coronary artery bypass grafting x3 vessels in the would benefit from further cardiac evaluation EKG shows nonspecific changes Discussed with cardiology in consultation, Dr. Quinn, appreciate consultation along with recommendations in patient's care On aspirin, statin, metoprolol, losartan, not currently on any Plavix, will start and will give treatment dose Lovenox Status: Acute (3) Atherosclerotic cardiovascular disease: Status post CABG x3 Continue aspirin, statin, metoprolol Status: Acute (4) Hyperlipidemia: continue statin Status: Acute Qualifiers: Hyperlipidemia type: mixed hyperlipidemia Qualified Code(s): E78.2 - Mixed hyperlipidemia (5) Essential hypertension: BP well controlled at this time Status: Acute (6) Colon cancer: Adenocarcinoma involving the right colon status post right hemicolectomy performed on 11/05/2017. Previously followed by Dr. Sloan Status: Acute Additional A&P Information Bradycardia: Decrease metoprolol to 25 mg twice daily DVT ppx: on therapeutic dose lovenox DIet: Cardiac Code status: Full code Attestations Medical Necessity Statement*: Requires further hospitalization due to chest pain radiating to the shoulder with non-ST elevation [facility] history of coronary artery disease. 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
--- NOTE | 2020-02-27 14:30 | PC.NURSE ---
Dr. Mccloud notified patient had episode of bradycardia on telemetry. HR 30-40s, BP stable. Patient asymptomatic. No new orders received. Nurse to continue to monitor.
--- NOTE | 2020-02-27 14:38 | PC.NURSE ---
Telephone order received from Dr. Mccloud to hold lovenox dose until patient is evaluated by Dr. Quinn for possible angiogram. Nurse to continue to monitor.
[2020-02-27] MEDS: acetaminophen 325 mg Tablet 650 MG PO (17:27)
--- NOTE | 2020-02-27 17:30 | PC.NURSE ---
Telephone order received from Dr. Mccloud to hold evening metoprolol dose due to bradycardia, RBTO. Nurse to continue to monitor.
--- NOTE | 2020-02-27 19:24 | PC.NURSE ---
Rounding: Patient is resting in bed. denies any pain. Patient is alert and oriented at this time. Denies any needs.
[2020-02-27] MEDS: trazodone 100 mg Tablet PO (20:58)
[2020-02-27] MEDS: atorvastatin 40 mg Tablet PO (20:58)
--- NOTE | 2020-02-27 22:06 | P.CONIM_ITS ---
Providers/Reason For Consult Consulting Physican/Specialty*: Toby Quinn MD/Cardiology Reason for Consult*: Shoulder pain/troponin elevation Attending Physician: Claudia Mccloud DO Primary Care Provider: TREY Rey History of Present Illness History of Present Illness Jesus Morris is a 79 year old male with a past medical history of CABG x3, right carotid artery stenosis status post carotid endarterectomy, history of colon cancer status post resection, hypertension, hyperlipidemia, GERD, BPH, who presented to hospital for right scapular pain. According to patient he has been having right shoulder blade pain for the last 1 week, intermittent, not associated with exertion. His initial troponin was mildly elevated at 41. Trended up slightly to 53. Patient denies any active chest pain. Each episode of pain lasts about 30 minutes. Says that motion of the shoulder worsens the pain. Patient had echo today that showed normal LV systolic function with EF of 55%. Review of Systems Const: Denies: fever(s), chills, fatigue or malaise Eyes: Denies: change in vision or blurry vision ENMT: Denies: nasal congestion Resp: Denies: dyspnea, productive cough, non-productive cough or wheezing GI: Denies: abdominal pain, nausea, vomiting, hematemesis, diarrhea, constipation, hematochezia or melena : Denies: flank pain, difficulty urinating, dysuria or urinary frequency Musc: Denies: neck pain or back pain Skin/Breast: Denies: rash Neuro: Denies: headache(s), dizziness or vertigo Psych: Denies: anxiety or depression Endo: Denies: polyuria or polydipsia Meds/Allergies Home Medications and Allergies Home Medications Medication Instructions Recorded Confirmed Last Taken Type atorvastatin 40 mg PO DAILY 07/04/19 02/26/20 01/10/20 History finasteride 5 mg PO DAILY 07/04/19 02/26/20 01/11/20 History losartan 100 mg PO DAILY 07/04/19 02/26/20 01/11/20 History pantoprazole [Protonix] 40 mg PO DAILY 07/04/19 02/26/20 01/11/20 History tamsulosin 0.4 mg PO DAILY 07/04/19 02/26/20 01/11/20 History trazodone 100 mg PO BID 07/04/19 02/26/2001/09/20 History metoprolol tartrate 50 mg tablet 50 mg PO BID 08/31/19 02/26/20 09/25/19 History Vitamin C 1,000 mg PO Q12H 09/25/19 02/26/20 01/11/20 History gabapentin 300 mg PO BID 09/25/19 02/26/20 09/25/19 History vitamin A 8,000 unit PO DAILY 09/25/19 02/26/20 01/11/20 History metronidazole 500 mg PO TID #21 tab 09/26/19 02/26/20 Unknown Rx Allergies Allergy/AdvReac Type Severity Reaction Status Date / Time No Known Allergies Allergy Verified 01/11/20 21:04 Current Medications Current Medications Generic Name Dose Route Start Last Admin Trade Name Freq PRN Reason Stop Dose Admin Acetaminophen 650 mg 02/26/20 23:02 02/27/20 17:27 Tylenol PO 650 mg Q6H PRN Administration Mild/Mod Pain Or Temp >/= 101 Ascorbic Acid 1,000 mg 02/26/20 23:45 02/27/20 11:45 Vitamin C PO 1,000 mg Q12H ARLINE Administration Aspirin 81 mg 02/27/20 09:00 02/27/20 08:15 Aspirin Ec PO 81 mg Q24H ARLINE Administration Atorvastatin Calcium 40 mg 02/27/20 21:00 02/27/20 20:58 Lipitor PO 40 mg BEDTIME ARLINE Administration Enoxaparin Sodium 100 mg 02/27/20 14:00 02/27/20 14:41 Lovenox SUBCUT Not Given Q12H ARLINE Finasteride 5 mg 02/27/20 09:00 02/27/20 08:15 Proscar PO 5 mg DAILY ARLINE Administration Gabapentin 300 mg 02/27/20 09:00 02/27/20 17:26 Neurontin PO 300 mg BID ARLINE Administration Losartan Potassium 100 mg 02/27/20 09:00 02/27/20 08:15 Cozaar PO 100 mg DAILY ARLINE Administration Metoprolol Tartrate 25 mg 02/27/20 18:00 02/27/20 17:26 Lopressor PO Not Given BID ARLINE Non-Formulary Medication 8,000 unit 02/27/20 09:00 02/27/20 08:09 Vitamin A PO Not Given DAILY ARLINE Pantoprazole Sodium 40 mg 02/27/20 09:00 02/27/20 08:14 Protonix PO 40 mg DAILY ARLINE Administration Tamsulosin HCl 0.4 mg 02/27/20 09:00 02/27/20 08:14 Flomax PO 0.4 mg DAILY ARLINE Administration Trazodone HCl 100 mg 02/27/20 21:00 02/27/20 20:58 Desyrel PO 100 mg BEDTIME ARLINE Administration PFSH Acute PFSH: Medical History Acid reflux Anemia Atherosclerotic cardiovascular disease Bradycardia Colon cancer Essential hypertension Hypercholesterolemia Hyperlipidemia Hypertension PAD (peripheral artery disease) Skin cancer Somnolence, daytime Surgical History History of colon resection Hx of CABG Family History Father CAD (coronary artery disease) Mother CAD (coronary artery disease) Daughter Cancer Denies family history of Diabetes Clotting disorder Dementia Hyperlipidemia Psychiatric illness Chronic kidney disease (CKD) Suicide Anesthesia complication Bleeding disorder Family history of premature coronary artery disease Lung disease Hypertension Stroke Social History Smoking and tobacco status: former smoker Alcohol intake: never Substance/Drug Use: never Vitals/I&O/Wt Last Vital Signs Temp 98.2 F 02/27/20 20:00 Pulse 66 02/27/20 20:00 Resp 21 H 02/27/20 20:00 BP 108/58 02/27/20 20:00 Pulse Ox 91 02/27/20 20:00 02/27/20 02/27/20 02/27/20 06:59 14:59 22:59 Intake Total 200 / 300 1048.75 / 1048.75 1427.5 / 2476.25 Output Total 1000 / 1000 Balance 200 / 300 48.75 / 48.75 1427.5 / 1476.25 Weight last 48 hrs Weight 235 lb Physical Exam Const: COMMON NORMALS: patient oriented x3 and alert GENERAL APPEARANCE: cooperative ORIENTATION/CONSCIOUSNESS: Yes awake, Yes oriented to person, Yes oriented to place and Yes oriented to time HENMT: COMMON NORMALS: normocephalic and atraumatic HEAD & SCALP: normocep halic and atraumatic Eye: COMMON NORMALS: Equal, round and reactive pupils present PUPIL: Yes E qual, round and reactive pupils present Neck/C-Spine: COMMON NORMALS: supple GENERAL: Yes normal visual inspection Resp: COMMON NORMALS: normal respiratory effort and clear to auscultation bilaterally EFFORT & INSPECTION: Yes able to speak in complete sentences AUSCULTATION: clear to auscultation bilaterally, no rhonchi and no wheezes Cardio: COMMON NORMALS: regular rate and regular rhythm RATE: regular rate RHYTHM: regular rhythm GI: COMMON NORMALS: Soft to palpation and non-tender INSPECTION: No abdominal distension AUSCULTATION: Yes normoactive bowel sounds PALPATION: Yes Soft to palpation Back/Pelvis: OTHER: No tenderness to palpation in the paraspinal muscles in the back or in the parascapular region Extremity: COMMON NORMALS: no clubbing, cyanosis or edema and no calf tenderness Neuro: COMMON NORMALS: patient oriented x3, CN's II-XII intact bilaterally, moves all extremities and no focal motor deficits SENSORIUM/ORIENTATION: Yes alert, Yes oriented to person, Yes oriented to place and Yes oriented to time SPEECH: speech normal Psych: COMMON NORMALS: mental status grossly normal and cooperative Skin: COMMON NORMALS: no rashes or lesions noted GENERAL SKIN EXAM: no rashes or lesions noted A&P Assessment and plan (1) Localized pain of right shoulder joint: Status: Acute (2) Atherosclerotic cardiovascular disease: Status: Acute (3) Hyperlipidemia: Status: Acute Qualifiers: Hyperlipidemia type: mixed hyperlipidemia Qualified Code(s): E78.2 - Mixed hyperlipidemia (4) Essential hypertension: Status: Acute (5) Bradycardia: Status: Acute Patient has atypical symptoms. Troponin was mildly elevated. LV systolic function is normal. EKG does not have any acute ischemic changes. I recommended stress test to assess for ischemia given atypical symptoms. However patient does not want to get stress test as did not feel well after the last stress test. I discussed possibility of proceeding with coronary angiography during current admission to rule out severe CAD. He wants to be treated conservatively at this time and if symptoms continue, to undergo cardiac catheterization as outpatient. Continue aspirin, statin and beta terry. Follow up as outpatient with Dr Recinos. Thank you for involving us with the care of this patient. Please call with questions. Coding Level of Care Code Acute Children'S Attendant for Chg Fwd Diagnoses Localized pain of right shoulder joint M25.511 Atherosclerotic cardiovascular disease I25.10 Hyperlipidemia E78.2 Hyperlipidemia type: mixed hyperlipidemia Essential hypertension I10 Bradycardia R00.1
[2020-02-27 23:36] LABS: Troponin T (5th) Once 58 ng/L (0-15)
[2020-02-28] VITALS: BP 104/42; PULSE 54; RESP 21; TEMP 36.6; O2SAT 92
[2020-02-28] MEDS: ascorbic acid 500 mg Tablet 1000 MG PO ×2 (01:04→12:11)
[2020-02-28] MEDS: enoxaparin 100 mg/mL Syringe SUBCUT (01:06)
[2020-02-28 04:00] VITALS: BP 121/57; PULSE 61; RESP 26; TEMP 36.6; O2SAT 92
[2020-02-28 05:03] LABS: Alanine Aminotransferase 17 U/L (0-41); Albumin Level 3.4 g/dL (3.5-5.2); Alkaline Phosphatase 96 IU/L (40-130); Aspartate Amino Transferase 17 U/L (0-40); Blood Urea Nitrogen 18 mg/dL (8-23); Calcium 8.8 mg/dL (8.5-10.5); Carbon Dioxide 19 mmol/L (22-29); Chloride 107 mmol/L (98-107); Globulin 2.5 g/dL (1.3-4.6); Glucose 111 mg/dL (65-115); Magnesium 1.7 mg/dL (1.7-2.3); Osmolality Calculated 287 mOsm/kg (285-295); Phosphorus 3.7 mg/dL (2.5-4.5); Sodium 137 mmol/L (136-145); Total Bilirubin 0.5 mg/dL (0.15-1.2); Total Protein 5.9 g/dL (6.6-8.7)
[2020-02-28 05:36] LABS: Anion Gap 15.3 (5-19); Potassium 4.3 mmol/L (3.5-5.1)
--- NOTE | 2020-02-28 05:39 | PC.NURSE ---
End of shift: Patient had a uneventful shift and has rested well. Patient remains alert and oriented. Patient states he isn't going to have a stress test today. Patient denies any pain.
[2020-02-28 07:37] VITALS: BP 172/89; PULSE 78; RESP 19; TEMP 36.4; O2SAT 93
--- NOTE | 2020-02-28 07:45 | PC.NURSE ---
Patient refusing stress test at this time. States he is ready to go home. Physical assessment performed. No needs identified at this time.
--- NOTE | 2020-02-28 09:00 | PC.CHAP ---
Pastoral Care Encounter/Spiritual Assessment Type of Contact [] Declined b2b sales representative visit [] Patient/Family/Request visit [] Outpatient visit [] Follow-up visit [] Physician referral [] Code/Alert [x] Routine visit [] Staff referral [] Actively dying [] Patient sleeping [] Family support [] [] Out of room [] Palliative care [] [] Receiving care in room [] Pre-surgical visit [] Trauma [] Long length of stay [] ICU visit [] Other: Relational/Emotional Strength [] Patient feels connected with others/family/visitors/staff [] Distress [] Loneliness/isolation [] Abandonment Spirituality of Patient [] Person of July [] Attends Mormonism of their July [] Believes in Prayer [] Reads Bible or Islam materials [] There are Spiritual issues to be addressed Residential Support Worker 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 [x] Prayer [] Active listening [] Non-anxious presence [] Spiritual/emotional support [] Crisis/trauma care [] Spiritual counseling [] Bereavement support [] Provided bereavement packet [] Provided Bible/devotional materials [] Provided toy/stuffed animal, coloring book to patient or family member [] Provided Communion [] Anointing/[place] [] Salvation [x] Completed spiritual assessment [] Other: Impact on Illness or Injury [] Angry [] Fearful [] Anxious [] Often cries [] Exhaustion [] Unable to work [] Unable to attend yazidism [] Unable to walk/stand [] Unable to read [] Unable to drive [] Unable to eat/drink [] Unable to sleep [] Unable to be with family [] Patient intubated [] Other: Summary patient still having issues with shoulder... better Time spent with patient 5 min
[2020-02-28] MEDS: aspirin 81 mg EC Tablet PO (09:31)
[2020-02-28] MEDS: finasteride 5 mg Tablet PO (09:31)
[2020-02-28] MEDS: gabapentin 300 mg Capsule PO (09:32)
[2020-02-28 09:33] VITALS: BP 172/89
[2020-02-28] MEDS: losartan 50 mg Tablet 100 MG PO (09:33)
[2020-02-28] MEDS: tamsulosin 0.4 mg Capsule PO (09:33)
[2020-02-28] MEDS: pantoprazole DR 40 mg Tablet PO (09:35)
[2020-02-28] MEDS: metoprolol tartrate 25 mg Tablet PO (09:35)
--- NOTE | 2020-02-28 11:01 | PM.DCS ---
Discharge Providers Date of Admission: 02/27/20 14:01 Date of Discharge: February 28, 2020 Attending Provider at Admission: Jesus Gomez MD Attending Provider at Discharge: Claudia Mccloud DO Primary Care Provider: TREY Rey Diagnoses at Discharge Discharge Diagnosis (1) Localized pain of right shoulder joint: Status: Acute (2) Atherosclerotic cardiovascular disease: Status: Acute (3) Hyperlipidemia: Status: Acute Qualifiers: Hyperlipidemia type: mixed hyperlipidemia Qualified Code(s): E78.2 - Mixed hyperlipidemia (4) Essential hypertension: Status: Acute (5) Bradycardia: Status: Acute Reason for Visit Reason for Visit: l shoulder pain Physical Exam Const: COMMON NORMALS: patient oriented x3 and alert GENERAL APPEARANCE: cooperative ORIENTATION/CONSCIOUSNESS: Yes awake, Yes oriented to person, Yes oriented to place and Yes oriented to time HENMT: COMMON NORMALS: normocephalic and atraumatic HEAD & SCALP: normocephalic and atraumatic Eye: COMMON NORMALS: Equal, round and reactive pupils present PUPIL: Yes Equal, round and reactive pupils present Neck/C-Spine: COMMON NORMALS: supple GENERAL: Yes normal visual inspection Resp: COMMON NORMALS: normal respiratory effort and clear to auscultation bilaterally EFFORT & INSPECTION: Yes able to speak in complete sentences AUSCULTATION: clear to auscultation bilaterally, no rhonchi and no wheezes Cardio: COMMON NORMALS: regular rate and regular rhythm RATE: regular rate RHYTHM: regular rhythm Back/Pelvis: OTHER: No tenderness to palpation in the paraspinal muscles in the back or in the parascapular region Extremity: COMMON NORMALS: no clubbing, cyanosis or edema and no calf tenderness Neuro: COMMON NORMALS: patient oriented x3, CN's II-XII intact bilaterally, moves all extremities and no focal motor deficits SENSORIUM/ORIENTATION: Yes alert, Yes oriented to person, Yes oriented to place and Yes oriented to time SPEECH: speech normal Psych: COMMON NORMALS: mental status grossly normal and cooperative Skin: COMMON NORMALS: no rashes or lesions noted GENERAL SKIN EXAM: no rashes or lesions noted Discharge Data Data Completed and Pending: Completed Studies During Hospitalization Category Date Time Status CT angio chest 71 275 Urgent Cat Scan 02/26/20 22:12 Completed XR chest 1V nishi ble [id number] Stat Exams 02/26/20 19:16 Completed XR shoulder LT mi n 2V* [id number] Stat Exams 02/26/20 19:16 Completed CV echo complete* [id number] Routine Ultrasound 02/27/20 07:00 Completed Pending at discharge Category Date Time Status Sestamibi Stress Test Request Brittany ne Exams 02/26/20 23:02 Ordered Comprehensive Met abolic Panel AM LA BS Lab 02/29/20 04:00 Ordered Magnesium AM LABS Lab 02/29/20 04:00 Ordered Phosphorus AM LAB S Lab 02/29/20 04:00 Ordered Labs from last 24 hours 02/28/20 02/27/20 04:00 23:06 Sodium 137 Potassium 4.3 Chloride 107 Carbon Dioxide 19 L Anion Gap 15.3 BUN 18 Creatinine 1.1 GFR Calculation Not Reportable Glucose 111 Calculated Osmolal ity 287 Calcium 8.8 Phosphorus 3.7 Magnesium 1.7 Total Bilirubin 0.5 AST 17 ALT 17 Alkaline Phosphata se 96 Troponin T Gen 5 n g/L 58 H Total Protein 5.9 L Albumin 3.4 L Globulin 2.5 Vitals: Last Vital Signs Temp 97.5 F L 02/28/20 07:37 Pulse 78 02/28/20 07:37 Resp 19 H 02/28/20 07:37 BP 172/89 02/28/20 09:33 Pulse Ox 93 02/28/20 07:37 Discharge Plan Discharge Patient Disposition: Home Condition: Stable Prescriptions: New isosorbide mononitrate 30 mg tablet extended release 24 hr 30 mg PO DAILY 30 Days Qty: 30 RF: 0 aspirin 81 mg Tablet,Delayed Release (Dr/Ec) 81 mg PO Q24H 30 Days Qty: 30 RF: 0 Continued vitamin A 8,000 unit Capsule 8,000 unit PO DAILY RF: 0 Vitamin C 1,000 mg Tablet Extended Release 1,000 mg PO Q12H RF: 0 gabapentin 300 mg Tablet Extended Release 24 Hr 300 mg PO BID RF: 0 atorvastatin 40 mg Tablet 40 mg PO DAILY RF: 0 tamsulosin 0.4 mg Capsule 0.4 mg PO DAILY RF: 0 trazodone 100 mg Tablet 100 mg PO BID RF: 0 pantoprazole [Protonix] 40 mg Tablet,Delayed Release (Dr/Ec) 40 mg PO DAILY RF: 0 losartan 100 mg Tablet 100 mg PO DAILY RF: 0 finasteride 5 mg Tablet 5 mg PO DAILY RF: 0 metoprolol tartrate 50 mg tablet 50 mg PO BID RF: 0 Discontinued metronidazole 500 mg Tablet 500 mg PO TID Qty: 21 RF: 0 Discharge Orders: Discharge Order (Routine); Ordered 02/28/20 Ordered By: Claudia Mccloud Referrals: Michelle Oh FNP [Primary Care Provider] - 1-3 days Starr Recinos MD [Physician] - 2 weeks Discharge Diet: Cardiac Discharge Activity: Increase activity as tolerated Activity Restrictions/Additional Instructions: Discharge to home with continuation of previously prescribed medications. Continue on statin, metoprolol, losartan. Started on aspirin 81 mg daily and Imdur 30 mg daily. Follow-up with your primary care provider in 2 to 3 days Follow-up with cardiology, Dr. Recinos in 2 to 4 weeks as soon as first appointment is available. Call your physician or present to the ED for any acute illness or concern. Discharge Attestations Time Spent in Discharge Care*: greater than 30 min Specific Discharge Activities: Specific discharge activities: educating patient and discussing with manager of case management/social workers/dc planners Quality Metrics Clinical Quality Measures During this hospital stay, did patient experience: None Coding Level of Care Code Acute Snack Stewardess for Chg Fwd Diagnoses Localized pain of right shoulder joint M25.511 Atherosclerotic cardiovascular disease I25.10 Hyperlipidemia E78.2 Hyperlipidemia type: mixed hyperlipidemia Essential hypertension I10 Bradycardia R00.1
[2020-02-28 11:49] VITALS: BP 153/58; PULSE 66; RESP 23; TEMP 36.6; O2SAT 93
--- NOTE | 2020-02-28 13:00 | PC.NURSE ---
Discharge instructions given per the physician's instructions. Patient verbalized understanding of information and did not have any further questions. Patient dressed self. IV has been removed. Son contacted for transportation home. No further needs identified at this time.
[2020-02-28 13:25] VITALS: BP 153/58; PULSE 66; RESP 23; TEMP 36.6; O2SAT 93
== END 2020-02-28 13:27 | disposition home or self-care (01) | DRG 556 ==
LOC: ER 21:23 → CSU 22:12
PROVIDERS: Emergency Medicine; Internal Medicine; Admitting Provider Family Medicine; PCP Nurse Practitioner Family; Visit Provider Family Medicine
DX: M25.511 Pain in right shoulder (principal); Z95.1 Presence of aortocoronary bypass graft; I25.10 Atherosclerotic heart disease of native coronary artery without angina pectoris; Z85.038 Personal history of other malignant neoplasm of large intestine; Z90.49 Acquired absence of other specified parts of digestive tract; I10 Essential (primary) hypertension; E78.2 Mixed hyperlipidemia; K21.9 Gastro-esophageal reflux disease without esophagitis; N40.0 Benign prostatic hyperplasia without lower urinary tract symptoms; I25.2 Old myocardial infarction; E78.00 Pure hypercholesterolemia, unspecified; I73.9 Peripheral vascular disease, unspecified; Z85.828 Personal history of other malignant neoplasm of skin; Z87.891 Personal history of nicotine dependence
CPT/HCPCS: 12345; 36415; 36600; 71045; 71275; 73030; 80053; 80061; 82803; 83690; 83735; 83880; 84100; 84443; 84484; 85025; 85610; 93005; 93306; 94664; 96372; 96375; 99283; G0378; J0131; J1650; J2270; J2405; J3490; J7030; Q9967

== ENCOUNTER 2020-03-10 09:32 | Inpatient (IN) | payer MEDICARE, OTHER, SELFPAY ==
[2020-03-10] VITALS (10 sets, daily range): BP systolic 79–144; BP diastolic 60–79; PULSE 107–119; RESP 14–28; TEMP 36.7; O2SAT 78–99; BMI 40.1
--- NOTE | 2020-03-10 10:11 | XRR_ITS ---
PROCEDURE INFORMATION: Exam: XR Chest, 1 View Exam date and time: 03/10/2020 10:58 AM Age: 79 years old Clinical indication: Cough and dyspnea; Additional info: Dyspnea/cough TECHNIQUE: Imaging protocol: XR of the chest Views: 1 view. COMPARISON: CR XR chest 1V portable [id number] 02/26/2020 7:27 PM FINDINGS: Lungs: There is mild pulmonary vascular prominence with interstitial haze. This has developed since previous chest x-ray in could indicate mild interstitial edema and heart failure. Pleural space: Unremarkable. No pleural effusion. No pneumothorax. Heart/Mediastinum: Clips and sutures are present from coronary bypass. The cardiac silhouette is enlarged but unchanged. Bones/joints: Unremarkable. XR/XR chest 1V portable [id number] IMPRESSION: Cardiomegaly with mild vascular prominence and interstitial haze suspicious for heart failure.
--- NOTE | 2020-03-10 10:11 | CTR_ITS ---
PROCEDURE INFORMATION: Exam: CT Head Without Contrast Exam date and time: 03/10/2020 10:58 AM Age: 79 years old Clinical indication: Altered mental status/memory loss; Additional info: AMS x 1 wk TECHNIQUE: Imaging protocol: Computed tomography of the head without contrast. Radiation optimization: All CT scans at this facility use at least one of these dose optimization techniques: automated exposure control; mA and/or kV adjustment per patient size (includes targeted exams where dose is matched to clinical indication); or iterative reconstruction. COMPARISON: CTA Head/Neck [id number] 07/24/2014 1:11 PM RADIATION DOSE METRICS: Total DLP (mGy-cm): 3337.22 FINDINGS: Brain: No abnormal parenchymal densities are seen. There is no intracranial hemorrhage, edema or other acute abnormality in the brain. There is no mass effect or midline shift. Cerebral ventricles: There is generalized prominence of the ventricles and sulci indicating chronic atrophy. Bones/joints: Unremarkable. No acute fracture. Paranasal sinuses: Visualized sinuses are unremarkable. No fluid levels. Mastoid air cells: Visualized mastoid air cells are well aerated. Soft tissues: Unremarkable. CT/CT head wo con* [id number] IMPRESSION: No acute abnormality. Radiation Dose CTDIVOL = (mGy): DLP = 3337.22 (mGy-cm)
[2020-03-10 10:23] LABS: Basophils # 0.1 10^3/uL (0.0-0.1); Basophils % 0.3 %; Eosinophils # 0.1 10^3/uL (0.0-0.8); Eosinophils % 0.4 %; Hematocrit 31.9 % (42.0-52.0); Hemoglobin 10.9 g/dL (11.7-16.6); Lymphocytes # 0.4 10^3/uL (0.8-4.8); Lymphocytes % 2.4 %; Mean Corpuscular HGB Conc 34.2 g/dL (30.0-36.0); Mean Corpuscular Hemoglobin 30.4 pg (28.0-34.0); Mean Corpuscular Volume 88.9 fL (80-94); Mean Platelet Volume 11.1 fL (7.4-10.4); Monocytes # 0.5 10^3/uL (0.2-0.9); Monocytes % 2.8 %; Neutrophils # 16.83 10^3/uL (1.8-7.7); Neutrophils % 93.1 %; Nucleated Red Blood Cells % 0 %; Platelet Count 159 10^3/cmm (130-400); Red Blood Count 3.59 10^6/uL (4.1-5.3); Red Cell Distribution Width 13.6 % (12.1-15.1); White Blood Count 18.1 10^3/uL (4.0-10.0)
[2020-03-10 10:43] LABS: Alanine Aminotransferase 33 U/L (0-41); Albumin Level 2.8 g/dL (3.5-5.2); Alkaline Phosphatase 103 IU/L (40-130); Anion Gap 20.9 (5-19); Aspartate Amino Transferase 62 U/L (0-40); Blood Urea Nitrogen 57 mg/dL (8-23); Calcium 8.6 mg/dL (8.5-10.5); Carbon Dioxide 16 mmol/L (22-29); Chloride 95 mmol/L (98-107); Globulin 2.8 g/dL (1.3-4.6); Glucose 253 mg/dL (65-115); Osmolality Calculated 290 mOsm/kg (285-295); Potassium 3.9 mmol/L (3.5-5.1); Sodium 128 mmol/L (136-145); Total Bilirubin 0.9 mg/dL (0.15-1.2); Total Protein 5.6 g/dL (6.6-8.7)
[2020-03-10 10:50] LABS: Creatine Phosphokinase 457 U/L (39-308); Lactic Sepsis W/Reflex 4.7 mmol/L (0.5-2.2)
[2020-03-10 10:52] LABS: Troponin(5th) Baseline 850 ng/L (0-15)
[2020-03-10 11:31] LABS: ABG PH Result 7.47 (7.35-7.45); Arterial Blood Gas Hematocrit 33.9 % (42-52); Blood Gas Allen Test Pos; Blood Gas Sample Type Arterial; Carboxyhemoglobin 1.2 %THgb (0.4-20.1); HCO3 ABG 12.5 mmol/L (22-26); HGB O2 Sat 93.9 % (95-100); Ionized Calcium Level - ABG 1.2 mmol/L (1.1-1.4); Methemoglobin 0.8 % (0.4-1.5); Oxygen Saturation ABG 95.9; PO2 ABG 67.8 mmHg (80.0-100.0); Potassium Level - ABG 3.6 mmol/L (3.5-5.0); Total Hemoglobin 11.1 g/dL (14-18)
[2020-03-10 11:32] LABS: ABG PCO2 17.2 mmHg (35-45); Alveolar-Arterial Oxygen Gradi 14.2 mmHg (5-10); Blood Gas Operator Identificat ED; Blood Gas Sample Site Radial, left; Oxygen Device NC
[2020-03-10 12:02] LABS: Reflex Lactate Order REFLEX LACTIC ORDERD
--- NOTE | 2020-03-10 12:12 | ECG_ITS ---
[facility] Test Date: 2020-03-10 Pat Name: Jesus Morris Department: Room: Gender: Male Keyboard Specialist: : 1940 Requested By: Bbo Yee Order Number: [id number] Digna MD: Josseline Vargas M.D. Measurements Intervals [place] Rate: 115 P: MO: -1 QRS: 111 QRSD: 156 T: 12 QT: 343 QTc: 475 Interpretive Statements SINUS TACHYCARDIA WITH FIRDT DEGREE AV BLOCK RIGHT BUNDLE BRANCH BLOCK Compared to ECG 01/11/2020 20:53:43 Sinus bradycardia no longer present First degree AV block no longer present Right bundle-branch block no longer present Electronically Signed On 03-13-2020 7:41:30 CDT by Josseline Vargas M.D. [id number]
--- NOTE | 2020-03-10 12:25 | ED_ITS ---
HPI - Altered Mental Status General: Chief Complaint: Altered Mental Status Stated Complaint: AMS Time Seen by Provider: 03/10/20 09:40 History of Present Illness: HPI narrative: 79-year-old male presents emergency room via EMS. Patient was at home having increasing difficulty breathing is been bedridden for the last week. He is also had some new onset of urinary incontinence. I have seen this patient before in the past usually he is awake alert and oriented and independent with all his activities of daily living. Today he responds when asked visit specifically about pain chest pain or abdominal pain and denies bowels beyond that he is really not able to contribute anything to his history. MD complaint: altered mental status and confusion Onset (ago): day(s) Severity: severe Consistency of symptoms: Getting Worse Review of Systems General: Reports: ROS unobtainable due to mental status PFSH ED PFSH: Medical History Acid reflux Anemia Atherosclerotic cardiovascular disease Bradycardia Colon cancer Essential hypertension Hypercholesterolemia Hyperlipidemia Hypertension PAD (peripheral artery disease) Skin cancer Somnolence, daytime Surgical History History of colon resection Hx of CABG Family History Father CAD (coronary artery disease) Mother CAD (coronary artery disease) Daughter Cancer Denies family history of Diabetes Clotting disorder Dementia Hyperlipidemia Psychiatric illness Chronic kidney disease (CKD) Suicide Anesthesia complication Bleeding disorder Family history of premature coronary artery disease Lung disease Hypertension Stroke Social History Smoking and tobacco status: former smoker Alcohol intake: never Physical Exam Const: GENERAL APPEARANCE: cooperative HENMT: COMMON NORMALS: normocephalic, atraumatic and moist oral mucous membranes HEAD & SCALP: normocephalic and atraumatic Eye: COMMON NORMALS: Equal, round and reactive pupils present, conjunctivae normal and no scleral icterus CONJUNCTIVA: Yes conjunctivae normal PUPIL: Yes Equal, round and reactive pupils present Neck/C-Spine: COMMON NORMALS: no JVD Lymph: LYMPHATIC: no lymphadenopathy noted and no lymphedema noted Resp: COMMON NORMALS: normal respiratory effort, No retractions, No use of accessory muscles and clear to auscultation bilaterally AUSCULTATION: clear to auscultation bilaterally Cardio: COMMON NORMALS: no JVD, regular rate, regular rhythm and No murmurs present (Cardio) RATE: regular rate RHYTHM: regular rhythm GI: COMMON NORMALS: Soft to palpation and No hepatosplenomegaly present AUSCULTATION: Yes normoactive bowel sounds PALPATION: Yes Soft to palpation, No Tenderness to palpation present (GI), No Guarding due to palpation present (GI) and Yes No hepatosplenomegaly present Extremity: COMMON NORMALS: normal to inspection, capillary refill normal, no clubbing, cyanosis or edema, no calf tenderness and no pedal edema Skin: COMMON NORMALS: no rashes or lesions noted GENERAL SKIN EXAM: no rashes or lesions noted Course Vital Signs: Vital signs: Vital Signs Temperature 98.0 F 03/10/20 09:34 Pulse Rate 119 H 03/10/20 16:05 Respiratory Rate 20 H 03/10/20 19:01 Blood Pressure 115/60 03/10/20 16:05 Pulse Oximetry 95 03/10/20 16:05 MDM - Altered Mental Status MDM Narrative: Medical decision making narrative: Patient to be admitted with sepsis and NSTEMI. He also has acute kidney injury and appears to have a right lower lobe pneumonia started on IV antibiotics also been heparinized. Blood pressure decreasing is also started on dopamine will admit to the ICU. Lab Data: Labs: Lab Results 03/10/20 03/10/20 03/10/20 Range/Units 10:10 10:10 10:10 WBC 18.1 H (4.0-10.0) 10^3/ uL RBC 3.59 L (4.1-5.3) 10^6/u L Hgb 10.9 L (11.7-16.6) g/dL Hct 31.9 L (42.0-52.0) % MCV 88.9 (80-94) fL MCH 30.4 (28.0-34.0) pg MCHC 34.2 (30.0-36.0) g/dL RDW 13.6 (12.1-15.1) % Plt Count 159 (130-400) 10^3/c mm MPV 11.1 H (7.4-10.4) fL Neut % (Auto) 93.1 % Lymph % (Auto) 2.4 % Darke % (Auto) 2.8 % Eos % (Auto) 0.4 % Baso % (Auto) 0.3 % Neut # (Auto) 16.83 H (1.8-7.7) 10^3/u L Lymph # (Auto) 0.4 L (0.8-4.8) 10^3/u L Darke # (Auto) 0.5 (0.2-0.9) 10^3/u L Eos # (Auto) 0.1 (0.0-0.8) 10^3/u L Baso # (Auto) 0.1 (0.0-0.1) 10^3/u L Nucleated RBC % (a uto) 0 % Nucleated RBCs # 0.0 /100WBC Specimen Type Sample Site ABG pH (7.35-7.45) ABG pCO2 (35-45) mmHg ABG pO2 (80.0-100.0) mmH g ABG HCO3 (22-26) mmol/L ABG O2 Saturation ABG Base Excess (-2.0-2.0) mmol/ L Brandan Test A-a O2 Gradient (5-10) mmHg Hematocrit (42-52) % Hgb O2 Saturation (95-100) % Carboxyhemoglobin (0.4-20.1) %THgb Methemoglobin (0.4-1.5) % Total Hemoglobin (14-18) g/dL Ionized Calcium (1.1-1.4) mmol/L O2 Delivery Device O2 Liters/Min % FiO2 % [employer] Estimator ID Sodium 128 L (136-145) mmol/L Potassium 3.9 (3.5-5.1) mmol/L Chloride 95 L (98-107) mmol/L Carbon Dioxide 16 L (22-29) mmol/L Anion Gap 20.9 H (5-19) BUN 57 H (8-23) mg/dL Creatinine 2.2 H (0.7-1.2) mg/dL GFR Calculation Not Reportable Glucose 253 H (65-115) mg/dL Calculated Osmolal ity 290 (285-295) mOsm/k g Lactic Acid 4.7 H* (0.5-2.2) mmol/L Lactic Acid (Sepsi s) (0.5-2.2) mmol/L Calcium 8.6 (8.5-10.5) mg/dL Magnesium 2.0 (1.7-2.3) mg/dL Total Bilirubin 0.9 (0.15-1.2) mg/dL AST 62 H (0-40) U/L ALT 33 (0-41) U/L Alkaline Phosphata se 103 (40-130) IU/L Creatine Kinase 457 H* (39-308) U/L Troponin T Baselin e (0-15) ng/L Troponin T 120 Min bois [place]te (0-15) ng/L Delta Troponin T (0-10) ABS# C-Reactive Protein (0.0-4.9) mg/L NT-Pro-B Natriuret Pep (0-450) pg/mL Total Protein 5.6 L (6.6-8.7) g/dL Albumin 2.8 L (3.5-5.2) g/dL Globulin 2.8 (1.3-4.6) g/dL Procalcitonin (0-0.5) ng/mL SARS-CoV-2 Ag (Rap id) (Negative) 03/10/20 03/10/20 03/10/20 Range/Units 10:10 10:10 11:21 WBC (4.0-10.0) 10^3/ uL RBC (4.1-5.3) 10^6/u L Hgb (11.7-16.6) g/dL Hct (42.0-52.0) % MCV (80-94) fL MCH (28.0-34.0) pg MCHC (30.0-36.0) g/dL RDW (12.1-15.1) % Plt Count (130-400) 10^3/c mm MPV (7.4-10.4) fL Neut % (Auto) % Lymph % (Auto) % Darke % (Auto) % Eos % (Auto) % Baso % (Auto) % Neut # (Auto) (1.8-7.7) 10^3/u L Lymph # (Auto) (0.8-4.8) 10^3/u L Darke # (Auto) (0.2-0.9) 10^3/u L Eos # (Auto) (0.0-0.8) 10^3/u L Baso # (Auto) (0.0-0.1) 10^3/u L Nucleated RBC % (a uto) % Nucleated RBCs # /100WBC Specimen Type Arterial Sample Site Radial, left ABG pH 7.47 H (7.35-7.45) ABG pCO2 17.2 L* (35-45) mmHg ABG pO2 67.8 L (80.0-100.0) mmH g ABG HCO3 12.5 L (22-26) mmol/L ABG O2 Saturation 95.9 ABG Base Excess -9.0 L (-2.0-2.0) mmol/ L Brandan Test Pos A-a O2 Gradient 14.2 H (5-10) mmHg Hematocrit 33.9 L (42-52) % Hgb O2 Saturation 93.9 L (95-100) % Carboxyhemoglobin 1.2 (0.4-20.1) %THgb Methemoglobin 0.8 (0.4-1.5) % Total Hemoglobin 11.1 L (14-18) g/dL Ionized Calcium 1.2 (1.1-1.4) mmol/L O2 Delivery Device Nc O2 Liters/Min 2.0 % FiO2 28.0 % [employer] Estimator ID Ed Sodium 127.0 L (136-145) mmol/L Potassium 3.6 (3.5-5.1) mmol/L Chloride (98-107) mmol/L Carbon Dioxide (22-29) mmol/L Anion Gap (5-19) BUN (8-23) mg/dL Creatinine (0.7-1.2) mg/dL GFR Calculation Glucose 239.0 H (65-115) mg/dL Calculated Osmolal ity (285-295) mOsm/k g Lactic Acid (0.5-2.2) mmol/L Lactic Acid (Sepsi s) (0.5-2.2) mmol/L Calcium (8.5-10.5) mg/dL Magnesium (1.7-2.3) mg/dL Total Bilirubin (0.15-1.2) mg/dL AST (0-40) U/L ALT (0-41) U/L Alkaline Phosphata se (40-130) IU/L Creatine Kinase (39-308) U/L Troponin T Baselin e 850 H* (0-15) ng/L Troponin T 120 Min bois [place]te (0-15) ng/L Delta Troponin T (0-10) ABS# C-Reactive Protein 289.2 H (0.0-4.9) mg/L NT-Pro-B Natriuret Pep 76878 H (0-450) pg/mL Total Protein (6.6-8.7) g/dL Albumin (3.5-5.2) g/dL Globulin (1.3-4.6) g/dL Procalcitonin 11.49 H (0-0.5) ng/mL SARS-CoV-2 Ag (Rap id) (Negative) 03/10/20 03/10/20 03/10/20 Range/Units 12:24 12:37 12:37 WBC (4.0-10.0) 10^3/ uL RBC (4.1-5.3) 10^6/u L Hgb (11.7-16.6) g/dL Hct (42.0-52.0) % MCV (80-94) fL MCH (28.0-34.0) pg MCHC (30.0-36.0) g/dL RDW (12.1-15.1) % Plt Count (130-400) 10^3/c mm MPV (7.4-10.4) fL Neut % (Auto) % Lymph % (Auto) % Darke % (Auto) % Eos % (Auto) % Baso % (Auto) % Neut # (Auto) (1.8-7.7) 10^3/u L Lymph # (Auto) (0.8-4.8) 10^3/u L Darke # (Auto) (0.2-0.9) 10^3/u L Eos # (Auto) (0.0-0.8) 10^3/u L Baso # (Auto) (0.0-0.1) 10^3/u L Nucleated RBC % (a uto) % Nucleated RBCs # /100WBC Specimen Type Sample Site ABG pH (7.35-7.45) ABG pCO2 (35-45) mmHg ABG pO2 (80.0-100.0) mmH g ABG HCO3 (22-26) mmol/L ABG O2 Saturation ABG Base Excess (-2.0-2.0) mmol/ L Brandan Test A-a O2 Gradient (5-10) mmHg Hematocrit (42-52) % Hgb O2 Saturation (95-100) % Carboxyhemoglobin (0.4-20.1) %THgb Methemoglobin (0.4-1.5) % Total Hemoglobin (14-18) g/dL Ionized Calcium (1.1-1.4) mmol/L O2 Delivery Device O2 Liters/Min % FiO2 % [employer] Estimator ID Sodium (136-145) mmol/L Potassium (3.5-5.1) mmol/L Chloride (98-107) mmol/L Carbon Dioxide (22-29) mmol/L Anion Gap (5-19) BUN (8-23) mg/dL Creatinine (0.7-1.2) mg/dL GFR Calculation Glucose (65-115) mg/dL Calculated Osmolal ity (285-295) mOsm/k g Lactic Acid (0.5-2.2) mmol/L Lactic Acid (Sepsi s) 4.4 H* (0.5-2.2) mmol/L Calcium (8.5-10.5) mg/dL Magnesium (1.7-2.3) mg/dL Total Bilirubin (0.15-1.2) mg/dL AST (0-40) U/L ALT (0-41) U/L Alkaline Phosphata se (40-130) IU/L Creatine Kinase (39-308) U/L Troponin T Baselin e (0-15) ng/L Troponin T 120 Min bois [place]te 1607 H (0-15) ng/L Delta Troponin T 757 H* (0-10) ABS# C-Reactive Protein (0.0-4.9) mg/L NT-Pro-B Natriuret Pep (0-450) pg/mL Total Protein (6.6-8.7) g/dL Albumin (3.5-5.2) g/dL Globulin (1.3-4.6) g/dL Procalcitonin (0-0.5) ng/mL SARS-CoV-2 Ag (Rap id) Negative (Negative) Critical Care Time Critical Care Time: Critical Care Time: Yes Total Critical Care Time: 30 Attestation: This case had a high probability of a clinically significant, sudden, or life threatening deterioration of this patient's condition which required my full and direct attention, intervention and personal management. Discharge Plan Discharge Patient Disposition: Admitted As Inpatient Admit Provider: Jesus Gomez Clinical Impression: NSTEMI (non-ST elevated myocardial infarction), Sepsis, RANJEET (acute kidney injury), Pneumonia Discharge Date/Time: 03/10/20 16:05 Coding Level of Care Code ED Exterior Interior Specialist for g Fwd Exam Comprehensive
[2020-03-10] MEDS: FUROsemide 10 mg/mL SDV 4mL 40 MG IVP (12:27)
[2020-03-10] MEDS: heparin 5,000 unit/mL INJ 1 mL 4000 UNIT IVP (12:31)
[2020-03-10] MEDS: levofloxacin-dextrose 5 % 750 MG/150 ML PREMIX 100 MG IV (12:33)
[2020-03-10 12:55] LABS: SARS Covid-2 Antigen Negative (Negative)
[2020-03-10 13:03] LABS: Lactic Acid level (Lactate) 4.4 mmol/L (0.5-2.2)
[2020-03-10 13:04] LABS: Troponin 5 2HR 1607 ng/L (0-15); Troponin 5 2HR Delta 757 ABS# (0-10)
--- NOTE | 2020-03-10 13:08 | USCV_ITS ---
Jesus Morris Age: 79 Gender: M : 1940 Exam Date: 03/10/2020 14:45 Ordering Phys: Bob Lowe DO Technologist: Alverto Arce Exam Location: [facility] [place] Indication: NSTIMI ? COVID BP: 121 / 79 HR: Rhythm: Sinus Technical Quality: Technically difficult study MEASUREMENTS (Male / Female) Normal Values 2D ECHO LV Ejection Fraction MOD 2C 61.5 % LV Ejection Fraction 2C AL 61.5 % LA Diameter 4.1 cm M-MODE LV Diastolic Diameter MM 5.6 cm 4.2 - 5.9 / 3.9 - 5.3 cm LV Systolic Diameter MM 4.1 cm LV Ejection Fraction MM Teich 52.3 % IVS Diastolic Thickness MM 1.0 cm 0.6 - 1.0 / 0.6 - 0.9 cm IVS Systolic Thickness MM 1.7 cm LVPW Diastolic Thickness MM 1.3 cm 0.6 - 1.0 / 0.6 - 0.9 cm LVPW Systolic Thickness MM 1.5 cm RV Diastolic Diameter MM 1.9 cm Aortic Annulus Diameter 3.5 cm LA Ao Ratio MM 1.2 MV E Point Septal Separation 1.2 cm FINDINGS Left Ventricle Normal left ventricular cavity size. Mildly decreased left ventricular systolic function. Left ventricular ejection fraction is estimated at 45-50 %. There is possibly moderate hypokinesis of basal to mid inferolateral and mid anterolateral thompson. Interpretation limited by tachycardia and poor images. Right Ventricle Right ventricle not well visualized. Probably normal right vbetricular function. Right Atrium Normal right atrial size. Right atrial pressure estimated at 3 mmHg. Left Atrium Upper normal left atrial size. Mitral Valve Trace mitral valve regurgitation. Aortic Valve Aortic valve not well visualized. Thickened aortic valve. Tricuspid Valve Tricuspid valve not well visualized. Pulmonic Valve Pulmonic valve not well visualized. Pericardium No pericardial effusion. Normal-sized inferior vena cava. Aorta Aorta not well visualized. CONCLUSIONS 1. This is a technically very difficult study. 2. Normal left ventricular cavity size. Mildly decreased left ventricular systolic function. Left ventricular ejection fraction is estimated at 45-50 %. There is possibly moderate hypokinesis of basal to mid inferolateral and mid anterolateral thompson. 3. Interpretation limited by tachycardia and poor images. 4. When compared to previous echocardiogram dated 02/27/2020, left ventricle systolic function has possibly decreased and there is new regional wall motion abnormality. Josseline Vargas MD (Electronically Signed) Final Date: 10 March 2020 16:31 S
[2020-03-10] MEDS: DOPamine drip 400 MG/250 ML PREMIX 23.8 MG IV (13:55)
--- NOTE | 2020-03-10 14:21 | PC.NURSE ---
Dr Gomez and US at bedside.
--- NOTE | 2020-03-10 14:50 | PM.HP ---
Providers/Chief Complaint Admitting Physician: Jesus Gomez MD Primary Care Provider: TREY Rey Chief Complaint: AMS History of Present Illness Jesus Morris is a 79 year old male with past medical history of CABG x3, right carotid artery stenosis status post carotid endarterectomy, history of colon cancer status post resection, hypertension, hyperlipidemia, GERD, BPH who presents to [facility] due to altered mental status. Patient presented to [facility] on 02/26/2020 for right scapular pain, concerns for chest pain, had elevated troponins, recommendation was made to do a stress test, however patient declined the nuclear medication, patient declined cardiac catheterization, elected for medical management Currently patient is alert, keeps saying that he he is okay, has no complaints, is confused, does not really provide a history, does not really follow commands, saturating in the high 90s on 2 L, sinus tachycardia with heart rates in the 110s, blood pressure 144/79, temperature 98, most of the history was provided at son by bedside Patient son tells me that when he got out of the hospital, he presented to [facility], and sounds like he received a trigger point injection to the right scapula, but continued to have right scapular pain, extending up to the neck, down towards the buttocks. He received a SI joint injection as a possible etiology. However patient continued to have pain throughout the right scapula up to the neck, down towards the buttocks. Pain started to become much more severe, prolonged, [facility] give him some tramadol without that he might of had some gas in his belly and was given some medications. However his symptoms persisted. Yesterday according to patient's daughter he had a fever. No other complaints, no chest pain, no shortness of breath, no lightheadedness, no dizziness, no dysuria, no history of pneumonias, no history of UTIs. Patient lives alone. This morning patient's son came up and checked up on him, and found him confused, just was not responding appropriately so he called EMS. Review of Systems General: Reports: ROS unobtainable due to medical condition Const: Reports: fever(s) Medications/Allergies Home Medications Medication Instructions Recorded Confirmed Last Taken Type atorvastatin 40 mg PO DAILY 07/04/19 03/10/20 01/10/20 History finasteride 5 mg PO DAILY 07/04/19 03/10/20 01/11/20 History losartan 100 mg PO DAILY 07/04/19 03/10/20 01/11/20 History pantoprazole [Protonix] 40 mg PO DAILY 07/04/19 03/10/20 01/11/20 History tamsulosin 0.4 mg PO DAILY 07/04/19 03/10/20 01/11/20 History trazodone 200 mg PO BEDTIME 07/04/19 03/10/20 01/10/20 History metoprolol tartrate 50 mg tablet 50 mg PO BID 08/31/19 03/10/20 09/25/19 History Vitamin C 1,000 mg PO Q12H 09/25/19 03/10/20 01/11/20 History vitamin A 8,000 unit PO DAILY 09/25/19 03/10/20 01/11/20 History aspirin 81 mg PO Q24H 30 Days #30 tab 02/28/20 03/10/20 Unknown Rx isosorbide mononitrate 30 mg PO DAILY 30 Days #30 tab 02/28/20 03/10/20 Unknown Rx cyclobenzaprine 5 mg PO TID PRN 03/10/20 03/10/20 Unknown History diclofenac sodium 50 mg PO BID 03/10/20 03/10/20 Unknown History sodium chloride See Rx Instructions .ROUTE .COMPLEX 03/10/20 03/10/20 Unknown History tramadol 50 mg PO Q6H PRN 03/10/20 03/10/20 Unknown History Allergies Allergy/AdvReac Type Severity Reaction Status Date / Time No Known Allergies Allergy Verified 01/11/20 21:04 PFSH Acute PFSH: Medical History Acid reflux Anemia Atherosclerotic cardiovascular disease Bradycardia Colon cancer Essential hypertension Hypercholesterolemia Hyperlipidemia Hypertension PAD (peripheral artery disease) Skin cancer Somnolence, daytime Surgical History History of colon resection Hx of CABG Family History Father CAD (coronary artery disease) Mother CAD (coronary artery disease) Daughter Cancer Denies family history of Diabetes Clotting disorder Dementia Hyperlipidemia Psychiatric illness Chronic kidney disease (CKD) Suicide Anesthesia complication Bleeding disorder Family history of premature coronary artery disease Lung disease Hypertension Stroke Social History Smoking and tobacco status: former smoker Alcohol intake: never Vitals/I&O/Wt Last Vital Signs Temp 98.0 F 03/10/20 09:34 Pulse 107 H 03/10/20 14:19 Resp 14 03/10/20 14:19 BP 144/79 03/10/20 14:19 Pulse Ox 95 03/10/20 14:19 Weight last 48 hrs Weight 127.006 kg Physical Exam Const: EXAM LIMITATIONS: altered mental status GENERAL APPEARANCE: ill appearing NUTRITIONAL APPEARANCE: obese ORIENTATION/CONSCIOUSNESS: Yes awake and Yes confused; not oriented to person, not oriented to place and not oriented to time HENMT: COMMON NORMALS: normocephalic HEAD & SCALP: normocephalic Eye: COMMON NORMALS: Equal, round and reactive pupils present and EOMs intact bilaterally GENERAL EYE: appearance normal, both eyes and all related structures PUPIL: Yes Equal, round and reactive pupils present Neck/C-Spine: COMMON NORMALS: full ROM, no lymphadenopathy, no JVD and Thyroid normal THYROID: Thyroid normal Lymph: LYMPHATIC: no lymphadenopathy noted Chest: COMMONS NORMALS: normal inspection of the chest OTHER: Sternotomy scar Resp: COMMON NORMALS: normal respiratory effort, No retractions, No use of accessory muscles and clear to auscultation bilaterally AUSCULTATION: clear to auscultation bilaterally Cardio: COMMON NORMALS: no JVD, regular rhythm, S1 normal heart sound present, S2 normal heart sound present, No gallops present (Cardio), No clicks present (Cardio) and No murmurs present (Cardio) RATE: tachycardic HEART SOUNDS: S1 normal heart sound present and S2 normal heart sound present GI: COMMON NORMALS: Normal to inspection, nondistended, normoactive bowel sounds present, Soft to palpation, non-tender and No hepatosplenomegaly present PALPATION: Yes Soft to palpation and Yes No hepatosplenomegaly present OTHER: Abdominal incision scar Extremity: COMMON NORMALS: normal to inspection, full ROM and no pedal edema Neuro: SENSORIUM/ORIENTATION: Yes alert, No oriented to person, No oriented to place, No oriented to time and No Orientation impaired OTHER: Does not follow neurologic testing Sepsis: Is patient septic: Yes Focused sepsis exam performed: Yes Date exam was performed: 03/10/20 Time exam was performed: 14:00 Data : 03/10/20 10:10 03/10/20 10:10 Micro: Microbiology 03/10/20 12:37 Blood Culture - Preliminary Blood SPECIMEN COLLECTED 03/10/20 10:10 Blood Culture - Preliminary Blood SPECIMEN COLLECTED A&P Assessment and plan (1) NSTEMI (non-ST elevated myocardial infarction): -On previous admission, atypical pain, right scapular pain, had elevated troponins, with a positive delta, with T wave inversions in inferior leads, right bundle branch block, atypical chest pain, echocardiogram showed an EF of 50 to 55%, CT negative for aortic dissection, patient declined nuclear stress testing, patient declined aortic angiogram, opted for medical management -Continue to have right scapular pain, not improved with musculoskeletal injections, now with altered mental status -Baseline troponin 850, 120-minute 1607, delta 757 -EKG shows T wave inversions in inferior and anterior chest leads PLAN: -Transfer to ICU -Continue dopamine drip -Continue heparin drip -Aspirin, statin, beta-terry -Cardiology has been consulted -Cardiac echocardiogram ordered -N.p.o., possible coronary intervention -Patient son is at bedside, patient's full code -Heparin for DVT prophylaxis -Protonix -Patient status is critical, prognosis guarded Status: Acute (2) Sepsis: -Possibly secondary to left lower lobe pneumonia, acute hypoxic hypercapnic respiratory failure, possible UTI UA pending -Currently altered mental status, septic encephalopathy, requiring 2 L nasal cannula -White blood cell 18.1, lactic acid 4.7, sepsis criteria met -Rapid Covid negative PLAN: -Admit to ICU -On dopamine drip -Broad-spectrum antibiotics vancomycin, Zosyn, azithromycin -Follow blood cultures, urine cultures sputum culture urine bacterial antigens -Monitor lactic acids Status: Acute (3) Hypoxia: Status: Acute (4) RANJEET (acute kidney injury): -Secondary to dehydration, sepsis, creatinine 2.2 Status: Acute (5) Acute respiratory failure with hypoxia and hypercapnia: Status: Acute (6) Hyponatremia: -Serum sodium 128, likely hypovolemic hyponatremia Status: Acute (7) Lactic acidosis: Status: Acute Attestations Medical Necessity Statement*: Patient requires hospitalization, inpatient, greater than 2 midnights, for NSTEMI, sepsis, pneumonia Coding Level of Care Code Acute Stallion Keeper for [facility] Fwd Diagnoses NSTEMI (non-ST elevated myocardial infarction) I21.4 Sepsis A41.9 Hypoxia R09.02 RANJEET (acute kidney injury) N17.9 Acute respiratory failure with hypoxia and hypercapnia J96.01; J96.02 Hyponatremia E87.1 Lactic acidosis E87.2 Sepsis Event Note Evaluation Current stage of sepsis: sepsis Possible source: pulmonary and genitourinary Focused Exam Vital Signs Temp Pulse Pulse Resp BP BP Pulse Ox 03/10/20 14:19 107 H 14 144/79 95 03/10/20 09:34 98.0 F 113 H 28 H 128/71 99 Cardiovascular exam: Present tachycardia Capillary refill: < 3 Seconds Peripheral pulse strength: 1+ Faint Peripheral pulse location: Pedal Skin exam: normal turgor Date exam was performed: 03/10/20 Time exam was performed: 14:59 Problem List (1) NSTEMI (non-ST elevated myocardial infarction): Status: Acute (2) Sepsis: Status: Acute (3) Hypoxia: Status: Acute (4) RANJEET (acute kidney injury): Status: Acute (5) Acute respiratory failure with hypoxia and hypercapnia: Status: Acute (6) Hyponatremia: Status: Acute (7) Lactic acidosis: Status: Acute
--- NOTE | 2020-03-10 16:01 | P.CONIM_ITS ---
Providers/Reason For Consult Consulting Physican/Specialty*: Dr. Vargas, cardiology Reason for Consult*: Increased troponin Attending Physician: Jesus Gomez MD Primary Care Provider: TREY Rey History of Present Illness History of Present Illness Jesus Morris is a 79 year old male with a past medical history of CAD s/p CABG x3 in , right carotid artery stenosis status post carotid endarterectomy, history of colon cancer status post resection, hypertension, hyperlipidemia, GERD, BPH, who presented to hospital for right scapular pain about 10 days back. He was chest hospitalized on 26 February with baseline troponin of 41 that increased to 53. Stress test was offered but was declined by the patient. Coronary angiogram was offered subsequently which he declined and opted for medical management as per documentation. He was discharged on aspirin and Imdur 30. He was continued on Lipitor 40, losartan 100 and metoprolol tartrate 50 twice daily. He usually follows up with Dr. Recinos and last saw him in August 2019. It seems like he continued have scapular pain and he got steroid injection, ibuprofen and muscle relaxants without any significant improvement. He lives by himself and his son visits him everyday to keep and eye on him.This morning patient's son came up and checked up on him, and found him confused, just was not responding appropriately so he called EMS. EKG on arrival showed sinus tachycardia. Indeterminate axis. right bundle branch block with marked ST depression in anterolateral leads . Baseline troponin T of 850 that increased at 2 hours to 1607 and 6 [place] [address]. Creatinine kinase 457, BUN 57 and creatinine 2.2. ABG with pH of 7.49, PCO2 14, PO2 67, FiO2 0.36. His lactic acid 4.4. COVID antigen negative and COVID PCR pending. He was given lasix 40 mg IV x 1 and then started on dopamine drip for hypotension in ER. He is unable to provide me any information. He is altered and history was obtained from chart and his son. Review of Systems General: Reports: ROS unobtainable due to medical condition and ROS unobtainable due to mental status Meds/Allergies Home Medications and Allergies Home Medications Medication Instructions Recorded Confirmed Last Taken Type atorvastatin 40 mg PO DAILY 07/04/19 03/10/20 01/10/20 History finasteride 5 mg PO DAILY 07/04/19 03/10/20 01/11/20 History losartan 100 mg PO DAILY 07/04/19 03/10/20 01/11/20 History pantoprazole [Protonix] 40 mg PO DAILY 07/04/19 03/10/20 01/11/20 History tamsulosin 0.4 mg PO DAILY 07/04/19 03/10/20 01/11/20 History trazodone 200 mg PO BEDTIME 07/04/19 03/10/20 01/10/20 History metoprolol tartrate 50 mg tablet 50 mg PO BID 08/31/19 03/10/20 09/25/19 History Vitamin C 1,000 mg PO Q12H 09/25/19 03/10/20 01/11/20 History vitamin A 8,000 unit PO DAILY 09/25/19 03/10/20 01/11/20 History aspirin 81 mg PO Q24H 30 Days #30 tab 02/28/20 03/10/20 Unknown Rx isosorbide mononitrate 30 mg PO DAILY 30 Days #30 tab 02/28/20 03/10/20 Unknown Rx cyclobenzaprine 5 mg PO TID PRN 03/10/20 03/10/20 Unknown History diclofenac sodium 50 mg PO BID 03/10/20 03/10/20 Unknown History sodium chloride See Rx Instructions .ROUTE .COMPLEX 03/10/20 03/10/20 Unknown History tramadol 50 mg PO Q6H PRN 03/10/20 03/10/20 Unknown History Allergies Allergy/AdvReac Type Severity Reaction Status Date / Time No Known Allergies Allergy Verified 01/11/20 21:04 Current Medications Current Medications Generic Name Dose Route Start Last Admin Trade Name Freq PRN Reason Stop Dose Admin Dopamine HCl/Dextrose 400 mg in 250 mls @ 23.814 mls/hr 03/10/20 13:15 03/10/20 15:39 Intropin Drip IV 0 mcg/kg/min CONT ARLINE 0 mls/hr Titration Protocol 5 MCG/KG/MIN PFSH Acute PFSH: Medical History Acid reflux Anemia Atherosclerotic cardiovascular disease Bradycardia Colon cancer Essential hypertension Hypercholesterolemia Hyperlipidemia Hypertension PAD (peripheral artery disease) Skin cancer Somnolence, daytime Surgical History History of colon resection Hx of CABG Family History Father CAD (coronary artery disease) Mother CAD (coronary artery disease) Daughter Cancer Denies family history of Diabetes Clotting disorder Dementia Hyperlipidemia Psychiatric illness Chronic kidney disease (CKD) Suicide Anesthesia complication Bleeding disorder Family history of premature coronary artery disease Lung disease Hypertension Stroke Social History Smoking and tobacco status: former smoker Alcohol intake: never Vitals/I&O/Wt Last Vital Signs Temp 98.0 F 03/10/20 09:34 Pulse 107 H 03/10/20 14:19 Resp 14 03/10/20 14:19 BP 144/79 03/10/20 14:19 Pulse Ox 95 03/10/20 14:19 03/10/20 03/10/20 03/10/20 06:59 14:59 22:59 Intake Total 41.253 / 41.253 Balance 41.253 / 41.253 Weight last 48 hrs Weight 280 lb Physical Exam Narrative: EXAM NARRATIVE: Gen: morbidly obese man lying in bed in respiratory distress Neck: short neck, JVD not appreciated CVS: S1, S2, tachycardia+, No murmur, rub or gallop appreciated. RS: coarse breath sounds bilaterally, No wheezes or rales. 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 Data Micro: Micro: Microbiology 03/10/20 12:37 Blood Culture - Pr eliminary Blood SPECIMEN [facility] 03/10/20 10:10 Blood Culture - Pr eliminary Blood SPECIMEN [facility] Other Data: Attestation for Other Data: I personally reviewed and interpreted the following: Other data: Transthoracic echocardiogram 27 February 2020 CONCLUSIONS LV systolic function is normal with EF of 50-55% Diastolic function is abnormal. Normal filling pressures Aortic valve is not well visualized, however,mild aortic regurgitation and mild aortic stenosis is noted with mean gradient across the valve of 10mmHg. No comparison studies are available. TTE CONCLUSIONS 1. This is a technically very difficult study. 2. Normal left ventricular cavity size. Mildly decreased left ventricular systolic function. Left ventricular ejection fraction is estimated at 45-50 %. There is possibly moderate hypokinesis of basal to mid inferolateral and mid anterolateral thompson. 3. Interpretation limited by tachycardia and poor images. 4. When compared to previous echocardiogram dated 02/27/2020, left ventricle systolic function has possibly decreased and there is new regional wall motion abnormality. A&P Assessment and plan (1) Respiratory failure with hypoxia: Seems to be in respiratory distress. -He would likely need to be intubated pretty soon. Status: Acute Qualifiers: Chronicity: acute Qualified Code(s): J96.01 - Acute respiratory failure with hypoxia (2) NSTEMI (non-ST elevated myocardial infarction): EKG with marked ST depression in anterolateral leads. -Troponins markedly elevated with lateral WMA and decreased LV function since last echo. - I had a detailed discussion with the patient's son and seems like he would need to have cardiac cath. - He might end up on diaysis if we pursue coronary cath at this point. This was discussed with the patient's son. Patient's critical condition was discussed with the patient as well. -He seems to unstable to do so right now. Plan to stabilize him overnight. He might need to be intubated. -Follow up on COVID PCR test. I will discuss with Dr. Cohen about the patient and plan for coronary angiogram based on patient's clinical condition and renal function. -In the meantime continue ASA, heparin gtt, metoporlol and statin. Status: Acute (3) Sepsis: On broad spectrum antibiotics. Status: Acute (4) RANJEET (acute kidney injury): Status: Acute (5) Atherosclerotic cardiovascular disease: CAD s/p CABG in , no interventions/stress tests since. Status: Acute (6) Essential hypertension: Status: Acute (7) Hyperlipidemia: Status: Acute Qualifiers: Hyperlipidemia type: mixed hyperlipidemia Qualified Code(s): E78.2 - Mixed hyperlipidemia Additional A&P Information Hyponatremia SVT: It seems like after intubation she developed SVT with rate in 150's and was given lopressor 5 mg IV x1 Phimosis Thank you for allowing me to participate in patient's care. Please feel free to call with questions or concern Consult Attestations Medical Necessity Statement: Remains critically ill Coding Level of Care Code Acute System Engineer for Zoya Navarro Diagnoses Respiratory failure with hypoxia J96.01 Chronicity: acute NSTEMI (non-ST elevated myocardial infarction) I21.4 Sepsis A41.9 RANJEET (acute kidney injury) N17.9 Atherosclerotic cardiovascular disease I25.10 Essential hypertension I10 Hyperlipidemia E78.2 Hyperlipidemia type: mixed hyperlipidemia
--- NOTE | 2020-03-10 16:12 | ECG_ITS ---
[facility] Test Date: 2020-03-10 Pat Name: Jesus Morris Department: Room: ICU08 Gender: Male Clinical Quality Assurance Associate: : 1940 Requested By: Bob Yee Order Number: [id number] Digna MD: Josseline Vargas M.D. Measurements Intervals [place] Rate: 108 P: ND: -1 QRS: 214 QRSD: 154 T: -55 QT: 333 QTc: 447 Interpretive Statements Possibly sinus tachycardia with short ND interval RIGHT BUNDLE BRANCH BLOCK LEFT POSTERIOR FASCICULAR BLOCK MARKED ST DEPRESSION, CONSIDER SUBENDOCARDIAL INJURY Compared to ECG 03/10/2020 11:54:04 Right bundle-branch block now present Left posterior fascicular block now present ST (T wave) deviation now present Ventricular-paced complex(es) or rhythm no longer present Electronically Signed On 03-10-2020 22:12:49 CDT by Josseline Vargas M.D. [id number]
--- NOTE | 2020-03-10 16:13 | PC.NURSE ---
Pt HR fast, very dry mucus membranes and puffing when he is breathing. Forestry Laborer called Dr. Maldonado to ask about fluids, lungs are clear, 1+ edema in his left leg, no edema in his right. Lactic >4. Asked if would come to the floor and see him. No new orders at this time.
[2020-03-10 16:14] LABS: Procalcitonin 11.49 ng/mL (0-0.5)
[2020-03-10 16:16] LABS: ABG PH Result 7.49 (7.35-7.45); Alveolar-Arterial Oxygen Gradi 22.1 mmHg (5-10); Arterial Blood Gas Hematocrit 34.2 % (42-52); Blood Gas Allen Test Pos; Blood Gas Operator Identificat BD; Blood Gas Sample Site Brachial, right; Blood Gas Sample Type Arterial; HCO3 ABG 10.8 mmol/L (22-26); HGB O2 Sat 94.2 % (95-100); Ionized Calcium Level - ABG 1.2 mmol/L (1.1-1.4); Methemoglobin 0.6 % (0.4-1.5); Oxygen Device NC; Oxygen Saturation ABG 95.8; Potassium Level - ABG 3.7 mmol/L (3.5-5.0); Total Hemoglobin 11.2 g/dL (14-18)
[2020-03-10 16:19] LABS: ABG PCO2 14.2 mmHg (35-45)
--- NOTE | 2020-03-10 16:19 | PC.NURSE ---
PTT lab ordered STAT for Heparin drip that was ordered at 1315 today.
[2020-03-10 16:27] LABS: C Reactive Protein 289.2 mg/L (0.0-4.9)
[2020-03-10 16:30] LABS: Partial Thromboplastin Time 36.7 SECONDS (23.9-36.7)
[2020-03-10 16:56] LABS: Troponin 5 6HR 2879 ng/L (0-15); Troponin 5 6HR Delta 2029 ng/L (0-12)
[2020-03-10] MEDS: azithromycin 500 MG in sodium chloride 0.9% 250 ML 250 MG IV (17:06)
--- NOTE | 2020-03-10 17:30 | P.CONIM_ITS ---
Providers/Reason For Consult Consulting Physican/Specialty*: Urology/Schmidt Reason for Consult*: Requires Andrade catheterization. Inability of staff to place it. Attending Physician: Jesus Gomez MD Primary Care Provider: TREY Rey History of Present Illness History of Present Illness Jesus Morris is a 79 year old male who I evaluated for the first time today in the ICU at the request of Dr. Gomez. Rapid Covid test in the ER was negative. Because of his pneumonia and critical illness all Covid precautions were maintained for the procedure and evaluation of the patient. Patient is critically ill 79-year-old white male with multiple medical problems as outlined in the chart who needed a catheter placed for fluid management. He is having respiratory failure and is pending intubation at the time of dictation. Attempts at Andrade catheter placement were unsuccessful. He was found to have a very tight preputial opening that could not be retracted adequately to feed a catheter through either blindly or visualize the meatus. No other information available about his baseline voiding status or symptoms. Patient is critically ill and not able to communicate any further information. PROCEDURE: Difficult Andrade catheter placement due to altered anatomy Foreskin could not be retracted due to a very tight chronically foreskin with phimosis. Added on solution was used to prep the skin and then a hemostat was passed through the tight opening and the foreskin was gradually stretched. This allowed retraction of the foreskin just enough to be able to pass the catheter. The meatus was still not visualized. A 16 Italian lubricated Andrade catheter was passed through the stretched opening and blindly into the urethral meatus and then into the bladder without difficulty once the meatus was intubated. Yellow urine was drained. Catheter was placed to dependent drainage after the balloon was inflated with 10 cc. Patient was turned back over to nursing staff in anticipation of intubation by anesthesia. He tolerated the procedure well. Recommendations: Utilize antibiotic ointment for the stretched preputial opening. Maintain catheter as long as needed. Review of Systems General: Reports: ROS unobtainable due to medical condition and ROS unobtainable due to mental status Meds/Allergies Home Medications and Allergies Home Medications Medication Instructions Recorded Confirmed Last Taken Type atorvastatin 40 mg PO DAILY 07/04/19 03/10/20 01/10/20 History finasteride 5 mg PO DAILY 07/04/19 03/10/20 01/11/20 History losartan 100 mg PO DAILY 07/04/19 03/10/20 01/11/20 History pantoprazole [Protonix] 40 mg PO DAILY 07/04/19 03/10/20 01/11/20 History tamsulosin 0.4 mg PO DAILY 07/04/19 03/10/20 01/11/20 History trazodone 200 mg PO BEDTIME 07/04/19 03/10/20 01/10/20 History metoprolol tartrate 50 mg tablet 50 mg PO BID 08/31/19 03/10/20 09/25/19 History Vitamin C 1,000 mg PO Q12H 09/25/19 03/10/20 01/11/20 History vitamin A 8,000 unit PO DAILY 09/25/19 03/10/20 01/11/20 History aspirin 81 mg PO Q24H 30 Days #30 tab 02/28/20 03/10/20 Unknown Rx isosorbide mononitrate 30 mg PO DAILY 30 Days #30 tab 02/28/20 03/10/20 Unknown Rx cyclobenzaprine 5 mg PO TID PRN 03/10/20 03/10/20 Unknown History diclofenac sodium 50 mg PO BID 03/10/20 03/10/20 Unknown History sodium chloride See Rx Instructions .ROUTE .COMPLEX 03/10/20 03/10/20 Unknown History tramadol 50 mg PO Q6H PRN 03/10/20 03/10/20 Unknown History Allergies Allergy/AdvReac Type Severity Reaction Status Date / Time No Known Allergies Allergy Verified 01/11/20 21:04 Current Medications Current Medications Generic Name Dose Route Start Last Admin Trade Name Freq PRN Reason Stop Dose Admin Dopamine HCl/Dextrose 400 mg in 250 mls @ 23.814 mls/hr 03/10/20 13:15 03/10/20 15:39 Intropin Drip IV 0 mcg/kg/min CONT ARLINE 0 mls/hr Titration Protocol 5 MCG/KG/MIN Azithromycin 500 mg/ Sodium 250 mls @ 250 mls/hr 03/10/20 16:30 03/10/20 17:06 Chloride IV 250 mls/hr Q24H ARLINE Administration Protocol Vancomycin HCl 1,500 mg/ 250 mls @ 250 mls/hr 03/10/20 18:00 03/10/20 17:06 Sodium Chloride IV 250 mls/hr Q24H ARLINE Administration Protocol PFSH Acute PFSH: Medical History (Updated 03/10/20 @ 17:37 by Lui Schmidt MD) Acid reflux Anemia Atherosclerotic cardiovascular disease Bradycardia Colon cancer Essential hypertension Hypercholesterolemia Hyperlipidemia Hypertension PAD (peripheral artery disease) Skin cancer Somnolence, daytime Surgical History History of colon resection Hx of CABG Family History Father CAD (coronary artery disease) Mother CAD (coronary artery disease) Daughter Cancer Denies family history of Diabetes Clotting disorder Dementia Hyperlipidemia Psychiatric illness Chronic kidney disease (CKD) Suicide Anesthesia complication Bleeding disorder Family history of premature coronary artery disease Lung disease Hypertension Stroke Social History Smoking and tobacco status: former smoker Alcohol intake: never Vitals/I&O/Wt Last Vital Signs Temp 98.0 F 03/10/20 09:34 Pulse 119 H 03/10/20 16:05 Resp 14 03/10/20 14:19 BP 115/60 03/10/20 16:05 Pulse Ox 95 03/10/20 16:05 03/10/20 03/10/20 03/10/20 06:59 14:59 22:59 Intake Total 41.253 / 41.253 Balance 41.253 / 41.253 Weight last 48 hrs Weight 280 lb Physical Exam Narrative: EXAM NARRATIVE: General: Responds to painful stimuli only. Respiratory: Tachypnea. No audible wheezes heard. Abdomen: Soft. Cardiovascular: Tachycardia. Regular rhythm. Extremity: No obvious deformity. No severe edema. Skin: No mottling. No obvious rash. HEENT: Normal cephalic, atraumatic. Eyes: No obvious jaundice. Lymphatic: No obvious inguinal lymphadenopathy. Genitourinary: Uncircumcised, tight phimosis, normal scrotum. No genital edema. Scrotal contents normal. Psychiatric: Obtunded Back: Not assessable Data Micro: Micro: Microbiology 03/10/20 12:37 Blood Culture - Pr eliminary Blood SPECIMEN [facility] 03/10/20 10:10 Blood Culture - Pr eliminary Blood SPECIMEN [facility] A&P Assessment and plan (1) Phimosis: Severe phimosis requiring dilation in order to place Andrade catheter. Successfully accomplished. Recommend local Neosporin or triple antibiotic ointment at the preputial opening as long as a Andrade catheter is in place until healing. Otherwise treat Andrade catheter as you normally would. Status: Acute Consult Attestations Medical Necessity Statement: See attending Coding Level of Care Code Acute Manager Learning for Zoya Navarro Diagnoses Phimosis N47.1
--- NOTE | 2020-03-10 17:41 | PC.NURSE ---
SAIRA martinez collected and sent to lab. Nava, from [facility] here to start a 3rd IV. Brayan just finished up putting in a chu.
--- NOTE | 2020-03-10 18:17 | ANES.PROC ---
Anesthesia Procedures Procedure/Date: 03/10/20 Other Information: 1745 L AC #18 g PIV started with utrasound guidance
--- NOTE | 2020-03-10 18:18 | ANES.PROC ---
Anesthesia Procedures Procedure/Date: 03/10/20 Intubation: Time Out Performed: Yes Consent: requested by attending/covering physician, risks and benefits reviewed and emergency procedure Sedative (amount): other Paralytic (amount): rocuronium Laryngoscope: Taylor ET Tube Size: 8 ET Tube Uncuffed: No Tube Secured Depth (cm): 23 Tube Secured Location: lips Tube Placement Confirmation: visualized tube passing through cords and equal breath sounds bilaterally Patient Tolerated Procedure: well and other (Phenyleprine total 500 mcg given post intubation for drop in BP with excellent reponse) Intubation Complications: none (Propofol 100mg and Higinio 50 mg given for intubation)
--- NOTE | 2020-03-10 18:31 | XRR_ITS ---
PROCEDURE INFORMATION: Exam: XR Chest, 1 View Exam date and time: 03/10/2020 6:32 PM Age: 79 years old Clinical indication: Device placement; Ett placement (vent status); Additional info: Pna TECHNIQUE: Imaging protocol: XR of the chest Views: 1 view. COMPARISON: CR (CHEST, ) 03/10/2020 10:58 AM FINDINGS: Tubes, catheters and devices: There is an ET tube with tip at the clavicular heads an orogastric tube with tip in the stomach. Lungs: There is improving vascular congestion with cephalization of flow, interstitial edema and ground-glass opacities compatible with CHF. There is no lobar consolidation. Pleural space: Unremarkable. No pleural effusion. No pneumothorax. Heart/Mediastinum: The heart is enlarged. Bones/joints: No acute abnormality. XR/XR chest 1V portable [id number] IMPRESSION: 1. There is an ET tube with tip at the clavicular heads an orogastric tube with tip in the stomach. 2. There is improving vascular congestion with cephalization of flow, interstitial edema and ground-glass opacities compatible with CHF.
[2020-03-10] MEDS: metoprolol tartrate 1 mg/1 mL SDV 5 mL 5 MG IV (18:54)
[2020-03-10 19:36] LABS: Lactic Sepsis W/Reflex 6.5 mmol/L (0.5-2.2)
[2020-03-10] MEDS: lactated ringers 1,000 ML 100 ML IV (19:46)
[2020-03-10] MEDS: lactated ringers 1,000 ML 999 ML (19:46)
[2020-03-10] MEDS: propofol 1,000 MG/100 ML INJ 10.5 MG (19:51)
--- NOTE | 2020-03-10 19:57 | PC.NURSE ---
1900-while given report to the oncoming RN, Pt heart rate went asystole and ACLS was started. Code called over head and son was notified.
--- NOTE | 2020-03-10 20:11 | PC.NURSE ---
[facility] [employer] notified [facility]. Spoke with Lili Limon [facility] coordinator and patient is not a candidate for organ donation. Awaiting to hear from [facility].
--- NOTE | 2020-03-10 20:20 | PC.NURSE ---
[facility] declines candidate for donation and allowed medical staff to release body.
[2020-03-10 20:22] LABS: Bilirubin Urine 1+ (Negative); Blood Urine 3+ (Negative); Glucose Urine UA Norm (Normal); Ketones Urine Negative (Negative); Leukocyte Esterase Urine Trace (Negative); Nitrate Urine Negative (Negative); Protein Urine 1+ (Negative); Specific Gravity, Urine 1.015 (1.005-1.030); Urine Appearance Clear (CLEAR); Urine Color Yellow (Yellow); Urobilinogen Urine 1 mg/dL (Negative); pH Urine 5 (5-7)
[2020-03-10 20:28] LABS: RBC Urine 15-25 /hpf (0-2)
[2020-03-10 20:29] LABS: Add Urine Culture? Yes; Amorphous Sediment Urine 2+ /hpf; Bacteria Urine 2+ /hpf; Hyaline Casts Urine 0-4 /lpf; Mucus Urine 1+ /hpf; Squamous Epithelial Cell Urine 0-4 /hpf (0-5)
--- NOTE | 2020-03-10 20:36 | PC.NURSE ---
Blake Villeda chose [facility] home [facility]. [facility] notified at this time.
--- NOTE | 2020-03-10 21:06 | PC.NURSE ---
Body Released to [facility] at this time.
--- NOTE | 2020-03-11 10:18 | PM.DDS ---
Discharge Providers DDS Date of Admission: 03/10/20 13:16 Date Summary Completed: 03/18/20 Attending Provider at Admission: Jesus Gomez MD Time of : 19:27 Attending Provider at Discharge: Jesus Gomez MD Primary Care Provider: TREY Rey Diagnoses Hospital Diagnoses (1) Respiratory failure with hypoxia: Qualifiers: Chronicity: acute Qualified Code(s): J96.01 - Acute respiratory failure with hypoxia (2) NSTEMI (non-ST elevated myocardial infarction): (3) Sepsis: (4) RANJEET (acute kidney injury): (5) Atherosclerotic cardiovascular disease: (6) Essential hypertension: (7) Hyperlipidemia: Qualifiers: Hyperlipidemia type: mixed hyperlipidemia Qualified Code(s): E78.2 - Mixed hyperlipidemia Reason for Visit Reason for Visit: AMS Summary Date and Time of : Date of : 03/10/20 Time of : 19:27 Summary: Summary: This is a 79-year-old male with a past medical history of coronary artery bypass graft x3, right carotid artery stenosis status post carotid endarterectomy, history of colon cancer status post resection, hypertension, hyperlipidemia, GERD, BPH who presents to [facility] due to complaints of altered mental status Of note patient presented to [facility] on 02/26/2020 for right scapular pain, given his cardiovascular history, there was concern for chest pain, he did have elevated troponins, recommendation was made to do a stress test however patient declined, recommendation was to proceed with coronary angiogram and possible catheterization however patient declined, elected for medical management Currently patient is alert, keeps saying that he he is okay, has no complaints, is confused, does not really provide a history, does not really follow commands, saturating in the high 90s on 2 L, sinus tachycardia with heart rates in the 110s, blood pressure 144/79, temperature 98, on a dopamine drip, most of the history was provided at son by bedside Patient son tells me that when he got out of the hospital, he presented to [facility], it sounds like he received a trigger point injection to the right scapula, but continued to have right scapular pain, extending up to the neck, down towards the buttocks. He received a SI joint injection as a possible etiology. However patient continued to have pain throughout the right scapula up to the neck, and down towards the buttocks. Pain started to become much more severe, prolonged, Lucio Teagueek gave him some tramadol. However his symptoms persisted. Yesterday according to patient's daughter he had a fever. No other complaints, no chest pain, no shortness of breath, no lightheadedness, no dizziness, no dysuria, no history of pneumonias, no history of UTIs. Patient lives alone. This morning patient's son came and checked up on him, and found him confused, just was not responding appropriately so he called EMS. In the emergency room patient was found to have a baseline troponin of 850, 120-minute of 1607, delta 757, EKG showing T wave inversions in the inferior anterior chest leads, was started on dopamine drip, heparin drip. Given his confusion, he was also given antibiotics, Covid rapid was negative, but given his risks of exposure, PCR was ordered. He was found to be hyponatremic sodium 128. Was found to have an elevated D-dimer, but CT angiogram could not be performed given his creatinine of 2.2. Was found to have RANJEET, creatinine of 2.2. In acute respiratory failure, with oxygen saturations in the high 90s on 2 L, with hyperrespiration. ABG showed respiratory alkalosis, with metabolic acidosis. He had lactic acidosis. There was also concerns for sepsis possibly secondary to pneumonia. Patient was not able to provide a urine sample, and no Andrade catheter could be placed, due to a tight urethra. When I arrived in the emergency room, patient was confused, saturating in the high 90s on 2 L, sinus tachycardia, on a dopamine drip. The concern was for a significant cardiovascular event, NSTEMI, acute hypoxic respiratory failure secondary to pulmonary edema and pneumonia, and mixed septic and cardiogenic shock, acute renal failure secondary to sepsis, and hyponatremia, lactic acidosis. I advised son that patient's prognosis is guarded, status is critical, I am very concerned about worsening obstructive CAD given his recent and past history and risk factors, the risk of arrhythmias, risk of significant motility mortality and he will likely require coronary angiogram soon. The immediate concerns will be the risk of worsening renal function and the risk of being put on dialysis given his creatinine 2.2. In addition there is a risk of adverse cardiovascular events, and strokes associate with cardiac catheterizations. In addition, patient has voiced refusal in the past to undergo coronary angiogram procedure which is documented in the chart. However I feel that benefits outweigh the risks, a coronary angiogram could potentially save his life, but this decision will ultimately be up to cardiology, I will await their recommendations, patient son voiced understanding, all questions answered, agreed to proceed. Patient was full code at this point. Patient was transferred to the intensive care unit, started on broad-spectrum antibiotics vancomycin, Zosyn, azithromycin, placed on COVID-19 precautions, continued on dopamine drip, heparin drip, aspirin, statin, beta-terry, kept n.p.o. I avoided fluids initially due to concerns with fluid overload, hyponatremia, worsening respiratory status. In the intensive care unit, patient continued to hyper-respirate, respiratory rate 30-40, repeat ABG showed continued respiratory alkalosis, with secondary metabolic acidosis, and patient was persistently confused. Given the concerns for worsening respiratory status, and worsening respiratory failure, I consulted the anesthesia team to intubate the patient under COVID-19 precautions. Patient was successfully intubated, he had some transient hypotensive events secondary to propofol, which resolved with fluid bolus, kept on propofol, and fentanyl for sedation, paralytic agent. In addition Andrade catheter was placed by urology service. At about 6:50 PM, patient had an episode of SVT, was given 5 mg of IV metoprolol, his heart rate slowed down to 90s to 100, normal sinus rhythm. Patient's 6-hour troponin was 2879, delta of 2028. I discussed my concerns with cardiology, I felt that patient would benefit for coronary angiogram urgently. After discussion with cardiology, given the concerns of acute kidney injury, the risk of being put on dialysis, the plan was to continue medical therapy, keep patient n.p.o., and possibly pursue a cardiac catheterization tomorrow morning based upon his morning creatinine and clinical status. At 7:10 PM, patient developed bradycardia, followed by asystole, pulseless electrical activity of the heart, CODE CHAIM was called, patient received CPR 27 minutes, patient son was called, he was at bedside, continued to have PEA, after discussion with son, CPR was stopped time of was 192603/10/2020. Additional Data: Family: at bedside Additional persons at bedside: nursing staff Attending/PCP notified?: Attending notified Was code activated?: Yes Autopsy requested?: No Advance directives?: No Hospice patient?: No Discharge Plan Discharge Patient Disposition: Discharge Date/Time: 03/10/20 21:11 Probable Cause of Probable cause of : Cardiac arrest DS Attestations Time Spent in /Discharge Care*: greater than 30 min Quality - AMI: AMI present?: Yes Quality - Stroke: CVA present?: No Quality - VTE: VTE present?: No Coding Level of Care Code Acute Bottoming Room Inspector for [facility] Fwd Diagnoses Respiratory failure with hypoxia J96.01 Chronicity: acute NSTEMI (non-ST elevated myocardial infarction) I21.4 Sepsis A41.9 RANJEET (acute kidney injury) N17.9 Atherosclerotic cardiovascular disease I25.10 Essential hypertension I10 Hyperlipidemia E78.2 Hyperlipidemia type: mixed hyperlipidemia
[2020-03-12 06:55] LABS: Coronavirus Lab Test PTC Negative
--- NOTE | 2020-03-14 19:55 | PM.EVENT ---
Event Note Event Note: Jesus Morris is a 79 year old male with past medical history of CABG x3, right carotid artery stenosis status post carotid endarterectomy, history of colon cancer status post resection, hypertension, hyperlipidemia, GERD, BPH who presents to [facility] due to altered mental status.Was being managed in the ICU for Ac enecephalopathy 2/2 to Sepsis/PUI/NSTEMI/ R/O P.E. P.E Could not be ruled out as the concern was worsening renal function,but the emphasis was on cardiac cath to fix NSTEMI,even though sepsis was a strong possibility (Procalcitoin 11.4 lekucytosis,tachycardia,) . Patient was of Broad Spectrum ABx,Hepain drip to start with along with other management for NSTEMI.Ultimately ended up being Intubated and with Peripheral ascess,without any central line in place.I discussed with my colleague to assist him with placement of central line,but it was decided not to place the central line for now.Patient went in sinus bradycardia followed by brief asystole at 7:10 pm.I was in MICU,hence responded and conducted the code.Code was called off at 7:37 pm as the son wanted to stop the code. Throughout the code patient was in PEA arrest with brief resumption on non sustainable ROSC.High quality CPR was performed along with epinephrine every 3 mins and 1 amp of bicarbaonte.No shock was delivered.Reversible causes of PEA arrest were paid attention to during the code.deferential diagnosis of 5H and 5T ( 5H----> Hypovolemia, hypoxia, hydrogen ion -acidosis, hypo/hyper,hypothermia) 5T (Toxin,Tamponade,Tension ptx,Thrombosis -->P.E,Thrombosis--->M.I) Hypovolemia:Patient was on runnung bolus I.V Fluid, hypoxia-->patient was on mechanical vent--though in massive P.E vent will have no utility.Acidosis--:Bicarbonate was given,temperature was normal). Xray chest:No PTX, Echo: no Tamponade,Utox:not available. Thrombolyis for possible P.E was in consideration based on high index of suspicion and benefit outweighing the risk,C.T Head without contrast :Negative for bleed) but family decided to call off the code. Code was called of as per family wishes.
== END 2020-03-10 21:11 | disposition expired | DRG 871 ==
LOC: ER 09:56 → ICU 13:32
PROVIDERS: Admitting Provider Family Medicine; Emergency Provider Family Medicine; PCP Nurse Practitioner Family; Visit Provider Family Medicine
DX: A41.9 Sepsis, unspecified organism (principal); I21.4 Non-ST elevation (NSTEMI) myocardial infarction; G93.41 Metabolic encephalopathy; J96.02 Acute respiratory failure with hypercapnia; J96.01 Acute respiratory failure with hypoxia; J18.9 Pneumonia, unspecified organism; I47.1 Supraventricular tachycardia; E87.4 Mixed disorder of acid-base balance; E87.1 Hypo-osmolality and hyponatremia; N17.9 Acute kidney failure, unspecified; N39.0 Urinary tract infection, site not specified; I25.10 Atherosclerotic heart disease of native coronary artery without angina pectoris; Z95.1 Presence of aortocoronary bypass graft; D64.9 Anemia, unspecified; Z85.038 Personal history of other malignant neoplasm of large intestine; I10 Essential (primary) hypertension; E78.00 Pure hypercholesterolemia, unspecified; E78.2 Mixed hyperlipidemia; I73.9 Peripheral vascular disease, unspecified; Z85.828 Personal history of other malignant neoplasm of skin; Z90.49 Acquired absence of other specified parts of digestive tract; Z87.891 Personal history of nicotine dependence; M25.511 Pain in right shoulder; N47.1 Phimosis; I46.9 Cardiac arrest, cause unspecified; N40.0 Benign prostatic hyperplasia without lower urinary tract symptoms; I45.10 Unspecified right bundle-branch block; I95.9 Hypotension, unspecified
CPT/HCPCS: 12345; 36415; 36600; 70450; 71045; 80051; 80053; 81001; 82550; 82810; 83605; 83735; 83880; 83986; 84145; 84484; 85025; 85730; 86140; 87040; 87077; 87086; 87186; 87205; 87426; 87635; 93005; 93308; 94002; 94799; 96375; 99284; A4570; J0171; J0456; J1265; J1644; J1940; J1956; J2370; J2704; J3370; J3490; J7050